=== PATIENT | male | born 1950 | race Caucasian/White ===

== ENCOUNTER → 2016-09-21 | Outpatient (CLI) | payer MEDICARE ==
--- NOTE | 2016-09-26 10:27 | SLEEPCENT ---
DATE OF PROCEDURE: 09/21/2016 ORDERED BY: Ana Luisa Paredes Nocturnal polysomnography was performed for evaluation of sleep apnea syndrome symptoms in this patient with a history of excessive somnolence and comorbidities of hypertension and diabetes type 2. 7 hours and 22 minutes of data were reviewed. There were 194 minutes of sleep identified. Sleep latency was prolonged at 85 minutes. Rapid eye movement (REM) latency was prolonged at 282 minutes. Sleep architecture showed poor progression and prolonged periods of wake. Overall sleep efficiency suffered and was only 44.4%. The patient's electrocardiogram (EKG) showed a sinus rhythm with an average heart rate of 58 beats per minute. Heart rate variability was seen surrounding respiratory events and ranged 40 to 88 beats per minute. Electroencephalogram (EEG) showed reasonably normal waveforms for awake and sleep. There were 76 respiratory events identified of 10 seconds in duration or greater for an apnea-hypopnea index of 23.5. The events were primarily obstructive, not exclusive to sleep stage nor body posture. Arousals from respiratory events occurred 5.3 times per hour and oxygen desaturations were seen into the mid 80s. Oxygen was added during the study. Respiratory events persisted. Some limb activity was noted, but arousals occurred only 4.9 times per hour. IMPRESSION: Moderate to severe obstructive sleep apnea syndrome (G47.33), apnea-hypopnea index 23.5. RECOMMENDATION: The patient should be referred back to the sleep disorder center for pressure therapy. In the interim, alcohol and sedative avoidance should be practiced and caution exercised during the operation of motor vehicles.
== END ==
LOC: M SLEEP 19:45
PROVIDERS: ATTEND Nurse Practitioner Adult Health
DX: G47.30 Sleep apnea, unspecified (principal)

== ENCOUNTER → 2016-10-02 | Outpatient (REF) | payer MEDICARE | LOC: M LAB REF 16:17 | PROVIDERS: ATTEND Internal Medicine | DX: R74.8 Abnormal levels of other serum enzymes (principal) ==

== ENCOUNTER → 2016-10-31 | Outpatient (CLI) | payer MEDICARE | LOC: M SLEEP 19:35 | PROVIDERS: ATTEND Nurse Practitioner Adult Health | DX: G47.33 Obstructive sleep apnea (adult) (pediatric) (principal) ==

== ENCOUNTER → 2016-11-17 | Outpatient (CLI) | payer MEDICARE ==
[2016-11-17 19:35] LABS: ALBUMIN 3.9 GM/DL (3.2-5.2); ALBUMIN/GLOBULIN RATIO 1.18 (1.00-1.93); ALKALINE PHOSPHATASE 169 U/L (45-117); ALT/SGPT 57 U/L (12-78); ANION GAP 13 MEQ/L (8-16); AST/SGOT 53 U/L (15-37); BILIRUBIN,TOTAL 1.7 MG/DL (0.2-1.0); BLOOD UREA NITROGEN 24 MG/DL (7-18); CARBON DIOXIDE LEVEL 28 MEQ/L (21-32); CHLORIDE LEVEL 103 MEQ/L (98-107); CREATININE FOR GFR 1.15 MG/DL (0.70-1.30); GLOMERULAR FILTRATION RATE > 60.0 (>49); GLUCOSE, FASTING 118 MG/DL (80-110); POTASSIUM SERUM 4.2 MEQ/L (3.5-5.1); SODIUM LEVEL 144 MEQ/L (136-145); TOTAL PROTEIN 7.2 GM/DL (6.4-8.2)
== END ==
LOC: M WUC 10:56
PROVIDERS: ATTEND Internal Medicine Cardiovascular Disease
DX: I11.9 Hypertensive heart disease without heart failure (principal)

== ENCOUNTER 2018-08-10 06:44 | Day surgery (SDC) | payer MEDICARE ==
[2018-08-10] MEDS ORDERED: PROPOFOL 200 MG/20 ML VIAL As Ordered (06:59)
[2018-08-10] MEDS: NS 1,000 ML IV (07:09)
[2018-08-10] MEDS ORDERED: SIMETHICONE 40MG/0.6ML DROPS 30ML As Ordered (07:18)
== END 2018-08-10 08:39 | disposition home or self-care (01) ==
LOC: M OPP 08:39
DX: Z12.11 Encounter for screening for malignant neoplasm of colon (principal); K63.5 Polyp of colon; I10 Essential (primary) hypertension; E78.5 Hyperlipidemia, unspecified; E11.9 Type 2 diabetes mellitus without complications; Z79.82 Long term (current) use of aspirin; Z79.899 Other long term (current) drug therapy; Z79.84 Long term (current) use of oral hypoglycemic drugs
CPT/HCPCS: 45385

== ENCOUNTER → 2020-07-19 | Outpatient (REF) | payer MEDICARE ==
[~2020-07-19] MED LIST: ALLO100T PO; AMLO1TAB25 PO; ASPI81TA26 PO; ATOR80TA59 PO; CHLO125TA PO; IRBE300T7 PO; MAGN400C PO; METF-729 PO; MULT1TAB10 PO; SPIR-10 PO
== END ==
LOC: M LAB REF 12:27
PROVIDERS: ATTEND Internal Medicine
DX: K76.0 Fatty (change of) liver, not elsewhere classified (principal)

== ENCOUNTER → 2020-07-25 | Outpatient (CLI) | payer MEDICARE ==
--- NOTE | 2020-07-25 13:08 | REP ---
INDICATION: ELEVATED LFT'S. COMPARISON: 04/02/2018. TECHNIQUE: Real-time sonographic evaluation of right upper quadrant performed. Study is limited due to body habitus. FINDINGS: Patient has had a prior cholecystectomy.. There is no intrahepatic or extrahepatic biliary dilatation, common bile duct measures 6 mm in maximum diameter. There is diffuse increased echotexture of the liver with a heterogeneous pattern. A hyperechoic nodule is seen in the right lobe of the liver measuring 2.7 cm in diameter consistent with previously identified hemangioma. The main portal vein is mildly dilated 14 mm suggesting some degree of portal hypertension. The pancreas is not seen due to overlying bowel gas. The right kidney demonstrates no hydronephrosis, with a normal size of 14.4 cm in length. A hypoechoic nodule is seen in the upper right kidney 3.6 x 3.0 x 4.2 cm, increased in size since the prior study of 04/02/2018. There may be an ill-defined hypoechoic nodule also in the lower pole of the right kidney measuring 2.3 x 2.2 x 2.9 cm.No free fluid is seen. IMPRESSION: Status post cholecystectomy. No biliary dilatation. Diffuse increased echotexture of the liver compatible with diffuse fibrofatty infiltration. Stable right lobe hemangioma in the liver. Slight dilatation of the main portal vein suggests portal hypertension. Two hypoechoic nodules in the right kidney as discussed above could represent complex cysts or solid nodules. Recommend further evaluation with dedicated MRI or CT of the kidneys with and without contrast. <Electronically signed by Bhaskar Beltran > 07/25/20 1548
== END ==
LOC: M RAD 06:43
PROVIDERS: ATTEND Internal Medicine
DX: K76.0 Fatty (change of) liver, not elsewhere classified (principal); K76.89 Other specified diseases of liver; R94.5 Abnormal results of liver function studies; Z90.49 Acquired absence of other specified parts of digestive tract

== ENCOUNTER → 2020-09-04 | Outpatient (CLI) | payer MEDICARE ==
[~2020-09-04] MED LIST changes: +ISOVUE-370 76% 100ML VIAL As Ordered ONE
--- NOTE | 2020-09-04 14:10 | REP ---
INDICATION: RENAL MASS. COMPARISON: 02/08/2013 TECHNIQUE: Axial precontrast, contrast-enhanced and delayed images of the abdomen using 100 cc Isovue 370 intravenous contrast material. Coronal and sagittal reformations obtained. This CT examination was performed using the following dose reduction techniques: Automated exposure control, adjustment of mA and/or kv according to the patient's size, and the use of iterative reconstruction technique. FINDINGS: Right kidney demonstrates multiple rounded lesions which remain stable in density through the examination and are consistent with complex cysts. Left kidney demonstrates anterior upper pole rounded lesion which remains stable in density and consistent with complex cyst while a somewhat irregular shaped lower pole lesion measuring 3.2 cm appears to be increased in size compared to 2013 and demonstrates slight enhancement concerning for possible mass. Liver demonstrates nodular contour consistent with cirrhosis and includes 2.2 cm lesion in the medial right lobe consistent with previously diagnosed hemangioma. Patent umbilical vein and gastric varices consistent with associated portal hypertension. Mild splenomegaly without focal splenic lesion noted. Pancreas and bilateral adrenal glands are normal. Evidence for prior cholecystectomy. The visualized enteric system is without obstruction or acute inflammatory process. No ascites. No free air. No obvious adenopathy. Abdominal aorta without aneurysm. Musculoskeletal structures are intact. Lung bases are clear. IMPRESSION: 1. Majority of bilateral renal lesions appear to represent complex proteinaceous cysts. However, there is a somewhat suspicious 3.2 cm lesion along the posterior aspect of the left kidney which may represent mass. Ultrasound evaluation or pre and postcontrast MRI of the abdomen is recommended for further investigation. 2. Evidence for cirrhosis and portal hypertension as described above. <Electronically signed by Carlso Alberto Moore > 09/04/20 [id number]
== END ==
LOC: M RAD 12:52
PROVIDERS: ATTEND Urology
DX: N28.89 Other specified disorders of kidney and ureter (principal)
CPT/HCPCS: 74170; Q9967

== ENCOUNTER → 2020-09-13 | Outpatient (CLI) | payer MEDICARE ==
[~2020-09-13] MED LIST changes: -ISOVUE-370 76% 100ML VIAL As Ordered ONE
--- NOTE | 2020-09-13 11:16 | REP ---
INDICATION: RENAL MASS COMPARISON: CT dated 09/04/2020 TECHNIQUE: Real time zabala scale ultrasound examination using curved array transducer. FINDINGS: The right kidney measures 14.1 x 5.0 x 5.2 cm and includes 3.7 x 3.1 x 3.1 cm upper pole simple cyst, 1.8 x 1.2 x 1.5 cm mid/lower pole simple cyst and 2.8 x 2.6 x 2.5 cm lower pole simple cyst which corresponds to findings on CT. (The smaller lesions on recent CT or confirmed to be cystic and without enhancement.) There is no evidence for hydronephrosis or nephrolithiasis. The left kidney measures 13.2 x 6.1 x 5.4 cm and includes 2.4 x 2.4 x 3.1 cm upper pole simple cyst and 1.0 x 0.9 x 1.2 cm midpole simple cyst. The somewhat irregular triangular shaped soft tissue density lesion at the lower pole of the left kidney on CT is not definable by ultrasound and cannot be confirmed as simple benign lesion. IMPRESSION: The questionable right lower pole proteinaceous cyst versus mass on CT likely represents cyst based on current ultrasound. However, the questionable suspicious area in the lower pole of the left kidney is not identifiable on current ultrasound. As such, pre and postcontrast MRI of the kidneys may be warranted to confirm benign finding. <Electronically signed by Carlos Alberto Moore > 09/13/20 1112
== END ==
LOC: M RAD 09:42
PROVIDERS: ATTEND Urology
DX: N28.89 Other specified disorders of kidney and ureter (principal)

== ENCOUNTER → 2020-09-17 | Outpatient (CLI) | payer MEDICARE ==
[2020-09-17 15:19] LABS: HEMATOCRIT 41.5 % (42.0-52.0); HEMOGLOBIN 12.9 g/dl (13.5-17.5); MEAN CORPUSCULAR HEMOGLOBIN 29.3 pg (27.0-33.0); MEAN CORPUSCULAR HGB CONC 31.1 g/dl (32.0-36.5); MEAN CORPUSCULAR VOLUME 94.1 fl (80.0-96.0); PLATELET COUNT, AUTOMATED 149 10^3/uL (150-450); RED BLOOD COUNT 4.41 10^6/uL (4.30-6.10); WHITE BLOOD COUNT 4.9 10^3/uL (4.0-10.0)
[2020-09-17 15:30] LABS: INR 1.07; PROTHROMBIN TIME 14.2 SECONDS (12.5-14.3)
[2020-09-17 15:31] LABS: PARTIAL THROMBOPLASTIN TIME 34.5 SECONDS (24.2-38.5)
[2020-09-17 15:38] LABS: CALCIUM LEVEL 9.3 MG/DL (8.8-10.2); CREATININE FOR GFR 1.52 MG/DL (0.70-1.30); GLOMERULAR FILTRATION RATE 48.2 (>42); POTASSIUM SERUM 4.1 MEQ/L (3.5-5.1)
== END ==
LOC: M WUC 11:27
PROVIDERS: ATTEND Urology
DX: N28.89 Other specified disorders of kidney and ureter (principal)
CPT/HCPCS: 36415; 80048; 85027; 85610; 85730; G0463

== ENCOUNTER → 2020-09-26 | Outpatient (CLI) | payer MEDICARE ==
[~2020-09-26] MED LIST changes: +LIDOCAINE 1% MDV 20ML VIAL As Ordered ONE
[2020-09-26 15:30] VITALS: BP 158/66
--- NOTE | 2020-09-26 18:05 | REP ---
INDICATION: BILATERAL KIDNEY MASS. COMPARISON: None. TECHNIQUE: The procedure was performed under the direct supervision of Dr. Beltran. The patient has a history of a 3.4 cm lesion in the right lower pole kidney, as well as a 3.2 cm lesion along the posterior aspect of the left kidney seen on a previous CT scan dated 09/04/2020. The risks and benefits of the procedure were explained to the patient and informed consent was obtained. The left kidney was addressed 1st. The patient was placed on the CT table in a supine position. The left renal mass was localized using CT guidance. The skin was prepped and draped in a sterile fashion. 1% lidocaine was used as a local anesthetic. Using CT guidance a 19/20 gauge coaxial needle biopsy system was inserted and advanced into the mass. Five core biopsy samples were obtained. The right kidney was then addressed. The patient was rolled up onto his left side. The left renal mass was localized using CT guidance. The skin was prepped and draped in a sterile fashion. 1% lidocaine was used as a local anesthetic. Using CT guidance a 19/20 gauge coaxial needle biopsy system was inserted and advanced into the mass. Five core biopsy samples were obtained and sent to lab. The patient tolerated the procedure well and there were no immediate complications. After the appropriate amount to monitor convalescence the patient was discharged from the department. FINDINGS: None IMPRESSION: CT-guided bilateral renal mass biopsy. <Electronically signed by Liban Mosqueda > 09/26/20 8002 <Electronically signed by Bhaskar Beltran > 09/26/20 [id number]
== END ==
LOC: M IRPRO 11:28
PROVIDERS: ATTEND Urology
DX: C64.1 Malignant neoplasm of right kidney, except renal pelvis (principal); C64.2 Malignant neoplasm of left kidney, except renal pelvis

== ENCOUNTER → 2020-10-11 | Outpatient (CLI) | payer MEDICARE ==
[~2020-10-11] MED LIST changes: -LIDOCAINE 1% MDV 20ML VIAL As Ordered ONE
--- NOTE | 2020-10-11 10:36 | REP ---
INDICATION: MALIGNANT NEOPLASM OF RIGHT KIDNEY, EXCEPT SHAMAR/LABS. COMPARISON: Comparison study May 20, 2016. TECHNIQUE: Two views.. FINDINGS: The lungs are well inflated and free of infiltrate. The pleural angles are sharp. The heart size is normal. Pulmonary vasculature is not increased. No significant bony abnormality is seen. There are degenerative changes in the thoracic spine. Minimal linear fibrosis is again noted in the left base. Aorta is slightly tortuous. IMPRESSION: No active disease.. <Electronically signed by Papa Mena > 10/11/20 [id number]
[2020-10-11 11:08] LABS: HEMOGLOBIN 13.4 g/dl (13.5-17.5); MEAN CORPUSCULAR HEMOGLOBIN 30.1 pg (27.0-33.0); MEAN CORPUSCULAR HGB CONC 31.9 g/dl (32.0-36.5); MEAN CORPUSCULAR VOLUME 94.4 fl (80.0-96.0); PLATELET COUNT, AUTOMATED 170 10^3/uL (150-450); RED BLOOD COUNT 4.45 10^6/uL (4.30-6.10); WHITE BLOOD COUNT 6.7 10^3/uL (4.0-10.0)
[2020-10-11 11:50] LABS: ALBUMIN 3.9 GM/DL (3.2-5.2); BILIRUBIN,TOTAL 2.4 MG/DL (0.2-1.0); CALCIUM LEVEL 9.6 MG/DL (8.8-10.2); CREATININE FOR GFR 1.89 MG/DL (0.70-1.30); GLOMERULAR FILTRATION RATE 37.5 (>42); POTASSIUM SERUM 4.3 MEQ/L (3.5-5.1); TOTAL PROTEIN 6.9 GM/DL (6.4-8.2)
--- NOTE | 2020-10-12 12:08 | ECGEPIP ---
[facility] Test Date: 2020-10-11 Pat Name: JOYA DEGROOT Department: Room: - Gender: Male Parts Sales Associate: SUKH : 1950 Requested By: ADALGISA Trevino Order Number: [id number] Reading MD: Dillon Espitia Measurements Intervals [place] Rate: 82 P: 45 KS: 152 QRS: 6 QRSD: 94 T: 55 QT: 398 QTc: 464 Interpretive Statements Sinus rhythm with frequent premature Uniform ventricular complexes Nonspecific ST and T wave abnormality Electronically Signed on 10-12-2020 12:08:00 EST by Dillon Espitia
== END ==
LOC: M LAB 09:58
PROVIDERS: ATTEND Urology
DX: Z01.818 Encounter for other preprocedural examination (principal); R94.31 Abnormal electrocardiogram [ECG] [EKG]; C64.1 Malignant neoplasm of right kidney, except renal pelvis; C64.2 Malignant neoplasm of left kidney, except renal pelvis

== ENCOUNTER → 2020-10-26 | Outpatient (CLI) | payer MEDICARE ==
[~2020-10-26] MED LIST changes: +VITMTA PO
== END ==
LOC: M LABSMTC 10:40
PROVIDERS: ATTEND Anesthesiology
DX: Z01.812 Encounter for preprocedural laboratory examination (principal); Z20.822 Contact with and (suspected) exposure to COVID-19

== ENCOUNTER 2020-10-31 06:04 | Inpatient (IN) | payer MEDICARE ==
[~2020-10-31] VITALS: Ht 180.3 cm; Wt 150.6 kg
--- OUTSIDE RECORDS SUMMARY | 2020-10-31 06:10 | CCD ---
Author Author [facility] Organization [facility] ems Address Unknown Phone Unavailable Care Team Providers Care Industrial Recruiter Name Role Phone Zackary Robledo Unavailable PROBLEMS Type Condition ICD9-CM Code [id number] Code Onset Dates Condition S tatus SNOMED Code Notes Problem Renal mass N28.89 Active 217179934 ALLERGIES No Known Allergies ENCOUNTERS from 1950 to 2020-09-13 Encounter Location Date Provider Diagnosis [facility] U[facility] [address] [place] [address] Sep Zackaryjamie Peralesler Renal mass N28.89 IMMUNIZATIONS No Information SOCIAL HISTORY Sex Assigned At : Social History Observation Description Sex Assigned At Unknown REASON FOR REFERRAL No Information VITAL SIGNS Weight 339.6 lbs Sep, Height 5'11'' in Sep, BMI 47.36 kg/m2 Sep, Heart Rate 95 /min Sep, Respiratory Rate 18 /min Sep, Temperature 97.7 degrees Fahrenheit Sep, Oximetry 96% Sep, Blood pressure systolic 144 mm Hg Sep, Blood pressure diastolic 74 mm Hg Sep, MEDICATIONS Medication SIG (Take, Route, Frequency, Duration) Notes Start Da te End Date Status Crestor 10 MG 1 tablet Orally Once a day for 30 day(s) Not-Taking Aspirin 81 MG 1 tablet Orally Once a day for 30 day(s) Active AmLODIPine Besylate 5 MG 1 tablet Orally Once a day Active Allopurinol 100 MG 1 tablet Orally twice a day for 30 day(s) Active Chlorthalidone 25 MG 0.5 tablet in the morning with food Orally Onc e a day Active Irbesartan 300 MG 1 tablet Orally Once a day for 30 day(s) Active Magnesium Oxide 500 MG as directed Orally TWICE DAILY Active Mens One Daily Active Furosemide 20 MG 1 tablet Orally Once a day for 30 day(s) Not-Taking Losartan Potassium 100 MG 1 tablet Orally Once a day for 30 day(s) Not-Taking MetFORMIN HCl ER 500 MG 1 tablet with evening meal Orally FOUR TIME S A DAY Active PROCEDURES No Information RESULTS No Results REASON FOR VISIT kidney lesions MEDICAL (GENERAL) HISTORY Type Description Date Medical History Hypertension Medical History Gout Medical History Abdominal Aortic Aneurysm Medical History Obstructive Sleep Apnea Medical History Diabetes Medical History Fibroid Tumors Surgical History appendectomy Surgical History cholecystectomy Surgical History removal of several fibroid tumor Goals Section No Information Health Concerns No Information MEDICAL EQUIPMENT No Information MENTAL STATUS No Information FUNCTIONAL STATUS No Information ASSESSMENTS Encounter Date Diagnosis Assessment Notes Treatment Notes Treatm ent Clinical Notes Sep, Renal mass (ICD-10 - N28.89) - CT results discussed - renal US ordered to better characterize the 2 lesions that demonstrate slight enhancement - patient will f/u shortly after the US to discuss the results PLAN OF TREATMENT Treatment Notes Assessment Notes Clinical Notes Renal mass - CT results discuss ed- renal US ordered to better characterize the 2 lesions that demonstrate slight enhancement- patient will f/u shortly after the US to discuss the results Treatment Notes Test Name Order Date [facility] RENAL US 2020-09-13 Next Appt Details 1-2 wk follow up w/ renal US prior Reaso n:renal masses Provider Name:Zackary Robledo, 08:00:00 AM, [address], [place], [address], Follow Up:1-2 wk follow up w/ renal US priorrenal masses Insurance Providers Payer Name Payer Address Payer Phone Insured Name Patient Relati onship to Insured Coverage Start Date Coverage End Date MEDICARE BLUE PPO [address] [facility] [id number] JOYA DEGROOT self
--- OUTSIDE RECORDS SUMMARY | 2020-10-31 06:10 | CCD ---
Author Author [facility] Organization [facility] ems Address Unknown Phone Unavailable Care Team Providers Care University Administrative Assistant Name Role Phone Zackary Robledo Unavailable PROBLEMS Type Condition ICD9-CM Code [id number] Code Onset Dates Condition S tatus SNOMED Code Notes Problem Renal mass N28.89 Active [id number] ALLERGIES No Known Allergies ENCOUNTERS from 1950 to 2020-09-19 Encounter Location Date Provider Diagnosis [facility] [address] [place] [address] Sep Zackary Peralesler Renal mass N28.89 IMMUNIZATIONS No Information SOCIAL HISTORY Sex Assigned At : Social History Observation Description Sex Assigned At Unknown REASON FOR REFERRAL No Information VITAL SIGNS Weight 338.7 lbs Sep, Height 5'11'' in Sep, BMI 47.23 kg/m2 Sep, Heart Rate 85 /min Sep, Respiratory Rate 18 /min Sep, Temperature 97.5 degrees Fahrenheit Sep, Oximetry 97% Sep, Blood pressure systolic 146 mm Hg Sep, Blood pressure diastolic 88 mm Hg Sep, MEDICATIONS Medication SIG (Take, Route, Frequency, Duration) Notes Start Da te End Date Status Furosemide 20 MG 1 tablet Orally Once a day for 30 day(s) Not-Taking AmLODIPine Besylate 5 MG 1 tablet Orally Once a day Active Crestor 10 MG 1 tablet Orally Once a day for 30 day(s) Not-Taking Aspirin 81 MG 1 tablet Orally Once a day for 30 day(s) Active Irbesartan 300 MG 1 tablet Orally Once a day for 30 day(s) Active Magnesium Oxide 500 MG as directed Orally TWICE DAILY Active MetFORMIN HCl ER 500 MG 1 tablet with evening meal Orally FOUR TIME S A DAY Active Chlorthalidone 25 MG 0.5 tablet in the morning with food Orally Onc e a day Active Losartan Potassium 100 MG 1 tablet Orally Once a day for 30 day(s) Not-Taking Mens One Daily Active Allopurinol 100 MG 1 tablet Orally twice a day for 30 day(s) Active PROCEDURES No Information RESULTS REASON FOR VISIT f/u from renal us MEDICAL (GENERAL) HISTORY Type Description Date Medical [...] Sep, Renal mass (ICD-10 - N28.89) - renal US results discussed - recommend left renal mass biopsy of lower pole lesion - f/u after biopsy to discuss pathology results ADDENDUM: Subsequent to the patient's visit, I discussed the patient's imaging w/ Dr. Beltran in radiology. He agrees that while the lesion on the right appears cystic on US, it demonstrates slight enhancement on CT and MRI. Given the US results are user dependent, we agreed that the safer approach is to biopsy both suspicious lesions. I therefore changed the order to biopsy the right lower pole renal lesion as well. PLAN OF TREATMENT Treatment Notes Assessment Notes Clinical Notes Renal mass - renal US results d iscussed- recommend left renal mass biopsy of lower pole lesion- f/u after biopsy to discuss pathology resultsADDENDUM:Subsequent to the patient's visit, I discussed the patient's im aging w/ Dr. Beltran in radiology. He agrees that while the lesion on the right appears cystic on US, it demonstrates slight enhancement on CT and MRI. Given the US results are user dependent, we agreed that the safer approach is to biopsy both suspicious lesions. I therefore changed the order to biopsy the right lower pole renal lesion as well. Treatment Notes Test Name Order Date CT Guided Biopsy 2020-09-19 Next Appt Details after renal biopsy Reason:left renal mas s Follow Up:after renal biopsyleft renal mass Insurance Providers Payer Name Payer Address Payer Phone Insured Name Patient Relati onship to Insured Coverage Start Date Coverage End Date MEDICARE BLUE PPO [address] [facility] [place] [id number] RECORE,JOYA BARAHONA self
--- OUTSIDE RECORDS SUMMARY | 2020-10-31 06:10 | CCD | Continuity of Care Document ---
Author Author Chase RODRIGUEZ M.D Organization Unknown Address [address] [place] [address] Phone [phone] Care Team Providers Care Levee Superintendent Name Role Phone Cheli Gunn DO AUTM [phone] Problems Active Problems Provider Date Cirrhosis of liver Jonny Rodriguez M.D. Onset: 10/09/19 21 Social History Type Date Description Comments Sex Unknown ETOH Use Denies alcohol use Tobacco Use Start: Unknown Patient has never smoked Allergies, Adverse Reactions, Alerts Description No Known Drug Allergies Medications Active Medications SIG Qnty Indications Ordering Provide r Date Amlodipine Besylate 5mg Tablets Take One Tablet By Mouth Once Daily Unknown Allopurinol 100mg Tablets Cheli Gunn DO Metformin HCL ER 500mg Tablets ER 24HR Take Two Tablets By Mouth Twice A Day Unknown Irbesartan 300mg Tablets Take One Tablet By Mouth Every Day Unknown Chlorthalidone 25mg Tablets Take 1/2 Tablet By Mouth Every Day Unknown One-A-Day Essential Tablets Unknown Aspirin Ec Low Dose 81mg Tablets DR Unknown Magnesium 400mg Tablets Unknown Immunizations Description No Information Available Vital Signs Date Vital Result Comment 10/09/2020 11:52am Height 71 inches 5'11" Weight 329.00 lb BP Systolic 137 mmHg BP Diastolic 86 mmHg Heart Rate 86 /min BMI (Body Mass Index) 45.9 kg/m2 Weight 149.234 kg Body Temperature 97.3 F Results Description No Information Available Procedures Description No Information Available Medical Devices Description No Information Available Encounters Description No Information Available Assessments Date Code Description Provider 10/09/2020 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 Plan of Treatment Future Appointment(s):* 04/11/2021 10:00 am - Jonny Rodriguez M.D. 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 Pt is overweight, and has diabetes. No c/o abdominal pain, weight loss, change in bowel habits, or rectal bleeding. No family h/o colon cancer. No h/o chest pain, or sob. Scans suggest portal hypertension.He has 2 masses in both kidneys. He will be having surgery with Dr. Robledo. No family h/o liver diseases. He denies blood transfusions, iv drug use, or alcohol abuse. Plan:1. Pt is on a diet, has lost weight.2. He will need an egd to r/o varices.3. Labs + liver scans every 6 months to r/o liver masses.4. Office in 6 months, after he is through his kidney operations. Functional Status Description No Information Available Mental Status Description No Information Available Referrals Description No Information Available
--- OUTSIDE RECORDS SUMMARY | 2020-10-31 06:10 | CCD | Continuity of Care Document ---
Author Author Chase RODRIGUEZ M.D Organization Unknown Address [address] [place] [address] Phone [phone] Care Team Providers Care Voice Data Communications Engineer Name Role Phone Cheli Gunn DO AUTM [phone] Problems Active Problems Provider Date Cirrhosis of [...] Medical Devices Description No Information Available Encounters Type Date Location Provider Dx Diagnosis Office Visit 10/09/2020 11:45a Main Office Jonny Rodriguez M.D. K 74.69 Other cirrhosis of liver Assessments Date Code Description Provider 10/09/2020 K74.69 [...]
--- OUTSIDE RECORDS SUMMARY | 2020-10-31 06:10 | CCD ---
Author Author [facility] Organization [facility] Address Unknown Phone Unavailable Care Team Providers Care Health Services Information Specialist Name Role Phone Venkat Zackary Unavailable PROBLEMS Type Condition ICD9-CM Code [id number] Code Onset Dates Condition S tatus SNOMED Code Notes Problem Renal mass N28.89 Active [id number] ALLERGIES No Known Allergies ENCOUNTERS from 1950 to 2020-09-20 Encounter Location Date Provider Diagnosis [facility] Urology [address] [place] [address] Sep Zackary Robledo IMMUNIZATIONS No Information SOCIAL HISTORY Sex Assigned At : Social History Observation Description Sex Assigned At Unknown REASON FOR REFERRAL No Information VITAL SIGNS No information MEDICATIONS Medication SIG (Take, Route, Frequency, Duration) [...] 30 day(s) Active PROCEDURES No Information RESULTS No Results REASON FOR VISIT Change in Biopsy Order MEDICAL (GENERAL) HISTORY Type Description Date Medical History Hypertension Medical History Gout Medical History Abdominal Aortic Aneurysm Medical History Obstructive Sleep Apnea Medical History Diabetes Medical History Fibroid Tumors Surgical History appendectomy Surgical History cholecystectomy Surgical History removal of several fibroid tumor Goals Section No Information Health Concerns No Information MEDICAL EQUIPMENT No Information MENTAL STATUS No Information FUNCTIONAL STATUS No Information ASSESSMENTS No Information PLAN OF TREATMENT No Information Insurance Providers Payer Name Payer Address Payer Phone Insured Name Patient Relati onship to Insured Coverage Start Date Coverage End Date MEDICARE BLUE PPO [address] [place] [id number] JOYA DEGROOT self
--- OUTSIDE RECORDS SUMMARY | 2020-10-31 06:10 | CCD ---
Author Author [facility] [employer] [employer] ems Organization [facility] [employer] ems Address Unknown Phone Unavailable Care Team Providers Care Specialty Molder Name Role Phone Venkat Zackary Unavailable PROBLEMS Type Condition ICD9-CM Code YSQ28-EX Code Onset Dates Condition S tatus SNOMED Code Notes Problem Renal mass N28.89 Active [id number] ALLERGIES No Known Allergies ENCOUNTERS from 1950 to 2020-09-25 Encounter Location Date Provider Diagnosis [facility] Urology [address] [place] [address] Sep Zackary Robledo IMMUNIZATIONS No Information SOCIAL [...] Information RESULTS No Results REASON FOR VISIT CT Guided Biopsy MEDICAL (GENERAL) HISTORY Type Description Date Medical [...] Coverage End Date MEDICARE BLUE PPO [address] [place] [id number] JOYA DEGROOT self
--- OUTSIDE RECORDS SUMMARY | 2020-10-31 06:10 | CCD ---
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 Acti ve [id number] ALLERGIES No Known Allergies ENCOUNTERS from 1950 to 2020-10-04 Encounter Location Date Provider Diagnosis [facility] [id number] [place] [address] Sep Zackary Robledo Renal cell carcinoma of right kidney C64 .1 ; Renal cell carcinoma of left kidney C64.2 and Preop testing Z01.818 IMMUNIZATIONS No Information SOCIAL HISTORY Sex Assigned At : Social History Observation Description Sex Assigned At Unknown REASON FOR REFERRAL No Information VITAL SIGNS Weight 339.7 lbs Sep, Height 5'11'' in Sep, BMI 47.37 kg/m2 Sep, Heart Rate 88 /min Sep, Respiratory Rate 18 /min Sep, Temperature 97.2 degrees Fahrenheit Sep, Oximetry 97% Sep, Blood pressure systolic 164 mm Hg Sep, Blood pressure diastolic 88 mm Hg Sep, MEDICATIONS Medication SIG (Take, Route, Frequency, Duration) Notes Start Da te End Date Status AmLODIPine Besylate 5 MG 1 tablet Orally Once a day Active Magnesium Oxide 500 MG as directed Orally TWICE DAILY Active Irbesartan 300 MG 1 tablet Orally Once a day for 30 day(s) Active Chlorthalidone 25 MG 0.5 tablet in the morning with food Orally Onc e a day Active Mens One Daily Active Losartan Potassium 100 MG 1 tablet Orally Once a day for 30 day(s) Not-Taking Furosemide 20 MG 1 tablet Orally Once a day for 30 day(s) Not-Taking MetFORMIN HCl ER 500 MG 1 tablet with evening meal Orally FOUR TIME S A DAY Active Aspirin 81 MG 1 tablet Orally Once a day for 30 day(s) Active Allopurinol 100 MG 1 tablet Orally twice a day for 30 day(s) Active Crestor 10 MG 1 tablet Orally Once a day for 30 day(s) Not-Taking PROCEDURES No Information RESULTS No Results REASON FOR VISIT No Information MEDICAL (GENERAL) HISTORY Type Description Date Medical [...] Notes Treatm ent Clinical Notes Sep, Renal cell carcinoma of right kidney (ICD-10 - C 64.1) - pathology results discussed - informed consent signed for right robotic partial nephrectomy - will need preop CBC, CMP, CXR, EKG - will need medical clearance Sep, Renal cell carcinoma of left kidney (ICD-10 - C6 4.2) Sep, Preop testing (ICD-10 - Z01.818) Sep, Other Nephrectomy material was edson nted PLAN OF TREATMENT Treatment Notes Assessment Notes Clinical Notes Renal cell carcinoma of right kidney - p athology results discussed- informed consent signed for right robotic partial nephrectomy- will need preop CBC, CMP, CXR, EKG- will need medical clearance Treatment Notes Test Name Order Date CBC - Complete Blood Count 2020-10-04 Comprehensive Metabolic Profile (CMP) 2020-10-04 Electrocardiogram (EKG) 2020-10-04 [facility] Chest, 2 view (PA\Lat) 2020-10-04 Next Appt Details surgery Reason: Insurance Providers Payer Name Payer Address Payer Phone Insured Name Patient Relati onship to Insured Coverage Start Date Coverage End Date MEDICARE BLUE PPO [address] [employer] [address] [place] [address] RECORE,JOYA BARAHONA self
--- OUTSIDE RECORDS SUMMARY | 2020-10-31 06:10 | CCD | Continuity of Care Document ---
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 Social History Type Date Description Comments Sex Unknown ETOH Use Rarely consumes alcohol Tobacco Use Start: Unknown Patient has never smoked Allergies, Adverse Reactions, Alerts Description No Known Drug Allergies Medications Active Medications SIG Qnty Indications Ordering Provide r Date Amlodipine Besylate 5mg Tablets Take One Tablet By Mouth Every Day 30tabs Cheli Leggett DO 2019 Chlorthalidone 25mg Tablets 1/2 by mouth every day 30tabs Cheli Leggett DO 07/20/2020 Acetaminophen ER 650mg Tablets ER 1 by mouth every 8 hours as needed for pain 90tabs Cheli jacobsenDO 07/07/2019 Prevnar 13 Suspension 0.5 cubic centimeters x 1 1units Cheli Leggett DO 09/29/2018 Irbesartan 300mg Tablets Take One Tablet By Mouth Every Day 90tabs Cheli Leggett DO 04/01/2018 Magnesium Oxide 400(241.3mg) mg Ta blets take one tablet by mouth twice a day 180tabs Cheli Leggett DO 2016 Metformin HCL ER 500mg Tablets ER 24HR Take Two Tablets By Mouth Twice A Day 360tabs Cheli goins,DO 01/24/2016 Allopurinol 100mg Tablets Take Two Tablets By Mouth Every Day 180tabs Cheli Leggett,DO 02/25/2011 Aspirin 81mg Tablets 1 po qd Cheli LeggettDO 07/12/2010 Atorvastatin Calcium 80mg Tablets 1 by mouth every day Jose Roberto Nicole MD Oxygen 2Liters Misc vi a nasal canula qhs Jose Roberto Nicole MD Medications Administered in Office Medication SIG Qnty Indications Ordering Provider Date Administration Of Flu Vaccine Inj ection Cheli Leggett DO 07/20/2020 Immunizations CPT Code Status Date Vaccine Lot # [id number] Given 07/20/2020 Influenza Vaccin e Quadrivalent Preser/Antibiotic Free Im Use [id number] U-PneuC Given 09/30/2018 Prevnar 13 28144 Given 06/15/2017 Pneumovax 23 [id number] U-Td Refused 07/20/2020 Td(Adult)(Tetanus, Diphtheri a) unspecified 82677 Refused 07/20/2020 Shingrix Zoster Vaccine (HZV), Recombinant, Subunit, Adjuvanted 30563 Refused 09/29/2018 Influenza Virus Vaccine, Quadrivalent (Cciiv4), Derived From Cell 40681 Refused 09/29/2018 Shingrix Zoster Vaccine (HZV), Recombinant, Subunit, Adjuvanted 32086 Refused 09/29/2018 Zoster Vaccine 56382 Refused 09/29/2018 Adacel- Tetanus Diphtheria P ertussis (Age64 & Under) 58289 Refused 09/29/2018 Prevnar 13 19438 Refused 06/15/2017 Influenza Vaccin e Quadrivalent Preser/Antibiotic Free Im Use [id number] Vital Signs Date Vital Result Comment 10/18/2020 9:54am BP Systolic 140 mmHg BP Diastolic 78 mmHg Heart Rate 108 /min Height 70 inches 5'10" Weight 330.00 lb O2 % BldC Oximetry 96 % RM Air BMI (Body Mass Index) 47.3 kg/m2 07/20/2020 8:36am BP Systolic 132 mmHg BP Diastolic 62 mmHg Heart Rate 94 /min Height 70 inches 5'10" Weight 337.38 lb O2 % BldC Oximetry 97 % RM Air BMI (Body Mass Index) 48.4 kg/m2 Results Test Acquired Date Facility Test Result H/L Range Note Complete Blood Count 10/11/2020 [facility] [address] [place] [address] [phone] White Blood Count 6.7 10 Normal 4.0-10.0 Red Blood Count 4.45 10 Normal 4.30-6.10 Hemoglobin 13.4 g/dL Low 13.5-17.5 Hematocrit 42.0 % Normal 42.0-52.0 Mean Corpuscular Volume 94.4 fl Normal 80.0-96.0 Mean Corpuscular Hemoglobin 30.1 pg Normal 27.0-33.0 Mean Corpuscular HGB Conc 31.9 g/dL Low 32.0-36.5 Red Cell Distribution Width 15.0 % High 11.5-14.5 Platelet Count, Automated 170 10 Normal 150-450 Nucleated Red Blood Cell % 0.0 % Normal 0-0 Comprehensive Metabolic Profil 10/11/2020 [facility] [address] [place] [address] [phone] Glucose, Fasting 121 mg/dL High 70-100 Blood Urea Nitrogen 34 mg/dL High 7-18 Creatinine For GFR 1.89 mg/dL High 0.70-1.30 Glomerular Filtration Rate 37.5 Low >42 1 Sodium Level 142 mEq/L Normal 136-145 Potassium Serum 4.3 mEq/L Normal 3.5-5.1 Chloride Level 107 mEq/L Normal 98-107 Carbon Dioxide Level 27 mEq/L Normal 21-32 Anion Gap 8 mEq/L Normal 8-16 Calcium Level 9.6 mg/dL Normal 8.8-10.2 Ast/Sgot 30 U/L Normal 7-37 Alt/SGPT 46 U/L Normal 12-78 Alkaline Phosphatase 144 U/L High 45-117 Bilirubin,Total 2.4 mg/dL High 0.2-1.0 Total Protein 6.9 GM/DL Normal 6.4-8.2 Albumin 3.9 GM/DL Normal 3.2-5.2 Albumin/Globulin Ratio 1.3 Normal Complete Blood Count 07/19/2020 [facility] Irrigation Supervisor: [place] [address] [phone] WBC 5.1 x10*3/UL 4.1 - 10.9 RBC 4.44 x10*6/UL 4.20 - 6.30 Hemoglobin 13.5 g/dL 12.0 - 18.0 Hematocrit 40.0 % 37.0 - 51.0 MCV 90.1 fL 80.0 - 97.0 MCH 30.3 pg 26.0 - 32.0 MCHC 33.7 g/dL 31.0 - 38.0 RDW 14.5 % High 11.6 - 13.7 PLT 175 x10*3/UL 140 - 440 MPV 8.0 FL 7.8 - 11.0 Lymph % 35.6 % 10.0 - 58.5 Mid % 7.2 % 1.7 - 9.3 Neut % 57.2 % 37.0 - 92.0 Lymph # 1.8 x10*3/UL 0.6 - 4.1 Mid # 0.4 x10*3/UL 0.1 - 0.6 Neut # 2.9 x10*3/UL 2.0 - 7.8 A1c 07/19/2020 [facility] , Irrigation Supervisor: [place] [address] [phone] Hba1c 6.2 % High <5.7 2 Est Avg Glucose 131 mg/dL High 60 - 110 Comprehensive Chem Profile 07/19/2020 [facility], Irrigation Supervisor: [place] [address] [phone] Glucose 113 mg/dL High 74 - 99 3 BUN 22 mg/dL High 7 - 18 Creatinine 1.3 mg/dL 0.6 - 1.3 Sodium 143 mEq/L 136 - 145 Potassium 4.4 mEq/L 3.5 - 5.1 Chloride 106 mEq/L 98 - 107 Carbon Dioxide 27 mEq/L 21 - 32 Calcium 9.3 mg/dL 8.5 - 10.1 Alk. Phosphatase 147 mg/dL High 46 - 116 Total Bilirubin 2.0 mg/dL High 0.2 - 1.0 Ast (Sgot) 32 U/L 15 - 37 Alt (SGPT) 44 U/L 12 - 78 Albumin 3.8 g/dL 3.4 - 5.0 Total Protein 7.1 g/dL 6.4 - 8.2 A/G Ratio 1.15 CALC 1.00 - 1.90 GFR 54 mL/min Low >60 GFR >= 60 mL/min >60 4 Lipid Profile 07/19/2020 [facility] Irrigation Supervisor: [place] [address] [phone] Cholesterol 209 mg/dL High 131 - 200 Triglycerides 151 mg/dL High 30 - 150 HDL Cholesterol 47 mg/dL 35 - 60 LDL (Calculated) 132 CALC 50 - 159 Microalbumin/Creatinine Urine 07/19/2020 [facility], Irrigation Supervisor: [place] [address] [phone] Microalbumin Urine 21.5 mg/L High 1.3 - 20.0 Urine Creatinine 105.9 mg/dL 30.0 - 125.0 Microalb/Creat Ratio 20.3 ug/mg 0.0 - 30.0 Laboratory test finding 07/19/2020 [facility] [address] [place], [place] [id number] [phone] Alpha Fetoprotein Tumor Quant 2.6 NG/ML Normal <8 .1 5 1 Units are mL/min/1.73 m2 Chronic Kidney Disease Staging per NKF: Stage I & II GFR >=60 Normal to Mildly Decreased Stage III GFR 30-59 Moderately Decreased Stage IV GFR 15-29 Severely Decreased Stage V GFR <15 Very Little GFR Left ESRD GFR <15 on POCKET SECRETARY ASSEMBLER 2 Lab Result Notes: Pre-Diabetes 5.7 - 6.4 % Diabetes = or > 6.5% 3 100-125 mg/dL PRE-DIABET ES/FASTING >126 mg/dL DIABETES/FASTING 4 CHRONIC KIDNEY DISEASE STAGI NG PER NKF STAGE I & II GFR >= 60 NORMAL TO MILDLY DECREASED STAGE III GFR 30-59 MODERATELY DECREASED STAGE IV GFR 15-29 SEVERELY DECREASED STAGE V GFR <15 VERY LITTLE GFR LEFT ESRD GFR <15 ON POCKET SECRETARY ASSEMBLER 5 THE AFP ASSAY IS PERFORMED O N THE ugichemAUR BY CHEMILUMINESCENCE AND SHOULD NOT BE COMPARED INTERCHANGEABLY WITH OTHER METHODS. IT SHOULD NOT BE USED ALONE A SCREENING TEST OR DIAGNOSIS FOR THE PRESENCE OR ABSENCE OF MALIGNANT DISEASE. THESE RESULTS ARE NOT INTERPRETABLE IN FEMALES. PREDICTIONS OF DISEASE RECURRENCE SHOULD NOT BE BASED SOLELY ON VALUES OBTAINED FROM SERIAL PATIENT SERUM VALUES. Procedures Date Code Description Status 08/10/2018 [id number] Colonoscopy Completed 09/21/2017 [id number] Diabetic Retinal Eye Exam Comple samira 10/07/2012 [id number] Colonoscopy Completed Medical Devices Description No Information Available Encounters Type Date Location Provider Dx Diagnosis Office Visit 07/20/2020 9:00a [facility] Cheli Leggett ,DO Q85.00 Neurofibromatosis, unspecified I50.812 Chronic right heart failure I12.9 Hypertensive chronic kidney disease w stg 1-4/unsp chr kdny N18.30 Chronic kidney disease, stag e 3 unspecified K76.0 Fatty (change of) liver, not elsewhere classified I87.2 Venous insufficiency (chroni c) (peripheral) E78.5 Hyperlipidemia, unspecified G47.33 Obstructive sleep apnea (lula lt) (pediatric) E11.9 Type 2 diabetes mellitus wit hout complications I27.20 Pulmonary hypertension, unsp ecified Z23 Encounter for immunization Z13. Encounter for screening for other disorder E66.01 Morbid (severe) obesity due to excess calories Z68.42 Body mass index [BMI] 45.0-4 9.9, adult Assessments Date Code Description Provider 07/20/2020 Q85.00 Neurofibromatosis, unspecified L aura Velia,DO 07/20/2020 I50.812 Chronic right heart failure Rajesh Leggett,DO 07/20/2020 I12.9 Hypertensive chronic kidney dise ase with stage 1 through sta Cheli Leggett,DO 07/20/2020 N18.30 Chronic kidney disease, stage 3 unspecified Cheli Leggett,DO 07/20/2020 K76.0 Fatty (change of) liver, not els ewhere classified Cheli Leggett,DO 07/20/2020 I87.2 Venous insufficiency (chronic) ( peripheral) Cheli Leggett,DO 07/20/2020 E78.5 Hyperlipidemia, unspecified Rajesh a Velia,DO 07/20/2020 G47.33 Obstructive sleep apnea (adult) (pediatric) Cheli Leggett,DO 07/20/2020 E11.9 Type 2 diabetes mellitus without complications Cheli Leggett,DO 07/20/2020 I27.20 Pulmonary hypertension, unspecif ied Cheli Leggett,DO 07/20/2020 Z23 Encounter for immunization Cheli Leggett,DO 07/20/2020 Z13.89 Encounter for screening for othe r disorder Cheli Leggett,DO 07/20/2020 E66.01 Morbid (severe) obesity due to e xcess calories Cheli Leggett,DO 07/20/2020 Z68.42 Body mass index [BMI] 45.0-49.9, adult Cheli Leggett,DO 07/19/2020 I12.9 Hypertensive chronic kidney disease with stage 1 through stage 4 chronic kidney disease, or unspecified chronic kidney disease Cheli Leggett,DO 07/19/2020 I12.9 Hypertensive chronic kidney disease with stage 1 through stage 4 chronic kidney disease, or unspecified chronic kidney disease Lab Schedule 07/19/2020 N18.30 Chronic kidney disease, stage 3 unspecified Cheli Leggett,DO 07/19/2020 N18.30 Chronic kidney disease, stage 3 unspecified Lab Schedule 07/19/2020 E11.9 Type 2 diabetes mellitus without complications Cheli Leggett,DO 07/19/2020 E11.9 Type 2 diabetes mellitus without complications Lab Schedule 07/19/2020 E78.5 Hyperlipidemia, unspecified Rajesh Leggett,DO 07/19/2020 E78.5 Hyperlipidemia, unspecified Lab Schedule Plan of Treatment Future Appointment(s):* 12/14/2020 9:40 am - Cheli Leggett DO at [facility] 07/20/2020 - Cheli Leggett DO* Q85.00 Neurofibromatosis, unspecified * I50.812 Chronic right heart failure * I12.9 Hypertensive chronic kidney disease with stage 1 through sta * N18.30 Chronic kidney disease, stage 3 unspecified * K76.0 Fatty (change of) liver, not elsewhere classified * I87.2 Venous insufficiency (chronic) (peripheral) * E78.5 Hyperlipidemia, unspecified * G47.33 Obstructive sleep apnea (adult) (pediatric) * E11.9 Type 2 diabetes mellitus without complications * I27.20 Pulmonary hypertension, unspecified * Z23 Encounter for immunization * Z13.89 Encounter for screening for other disorder * E66.01 Morbid (severe) obesity due to excess calories * Z68.42 Body mass index [BMI] 45.0-49.9, adult * All * New Medication:* Amlodipine Besylate 5 mg - Take One Tablet By Mouth Every Day * Chlorthalidone 25 mg - 1/2 by mouth every day Functional Status Description No Information Available Mental Status Description No Information Available Referrals Refer to Reason for Referral Status Appt Date Jonny Rodriguez MD CONSULT FOR LIVER CIRRHOSIS Patient Noti fied 10/09/2020 [address] [facility] [address] [phone] [facility] POWDER COATER CONSULT FOR KIDNEY LESIONS Sent 09/03/2020 [id number] [address], [facility] [address] [place], [place] [id number] [phone]
--- OUTSIDE RECORDS SUMMARY | 2020-10-31 06:10 | CCD | Continuity of Care Document ---
Author Author Chase LEGGETT Organization Unknown Address [address] [facility] [address] [place] [address] Phone [phone] Care Team Providers Care Facilities Maintenance Worker Name Role Phone Cheli Leggett DO AUTM Unavailable Jose Roberto Nicole MD AUTM Unavailable Dillon Meyers MD AUTM [phone] Problems Active Problems Provider Date Hypertensive heart [...] CPT Code Status Date Vaccine Lot # 33989 Given 07/20/2020 Influenza Vaccin e Quadrivalent Preser/Antibiotic Free Im Use [id number] U-PneuC Given 09/30/2018 Prevnar 13 13901 Given 06/15/2017 Pneumovax 23 [id number] U-Td Refused 07/20/2020 Td(Adult)(Tetanus, Diphtheri a) unspecified 24237 Refused 07/20/2020 Shingrix Zoster Vaccine (HZV), Recombinant, Subunit, Adjuvanted 45789 Refused 09/29/2018 Influenza Virus Vaccine, Quadrivalent (Cciiv4), Derived From Cell 67998 Refused 09/29/2018 Shingrix Zoster Vaccine (HZV), Recombinant, Subunit, Adjuvanted 89863 Refused 09/29/2018 Zoster Vaccine 23024 Refused 09/29/2018 Adacel- Tetanus Diphtheria P ertussis (Age64 & Under) 18037 Refused 09/29/2018 Prevnar 13 85523 Refused 06/15/2017 Influenza Vaccin e Quadrivalent Preser/Antibiotic Free Im Use 411874 Vital Signs Date Vital Result Comment 10/18/2020 [...] H/L Range Note Complete Blood Count 10/11/2020 [facility] [address] [place] [address] [phone] White Blood Count 6.7 10 Normal 4.0-10.0 [...] % Normal 0-0 Comprehensive Metabolic Profil 10/11/2020 [facility] [address] [place] [address] [phone] Glucose, Fasting 121 mg/dL High 70-100 Blood [...] Ratio 1.3 Normal Complete Blood Count 07/19/2020 [facility] Psychology Physician: [place] [address] [phone] WBC 5.1 x10*3/UL 4.1 - 10.9 RBC [...] 2.9 x10*3/UL 2.0 - 7.8 A1c 07/19/2020 [facility] , Psychology Physician: [place] [address] [phone] Hba1c 6.2 % High <5.7 2 Est Avg Glucose 131 mg/dL High 60 - 110 Comprehensive Chem Profile 07/19/2020 [facility], Psychology Physician: [place] [address] [phone] Glucose 113 mg/dL High 74 - 99 [...] 60 mL/min >60 4 Lipid Profile 07/19/2020 [facility] Psychology Physician: [place] [address] [phone] Cholesterol 209 mg/dL High 131 - 200 Triglycerides 151 mg/dL High 30 - 150 HDL Cholesterol 47 mg/dL 35 - 60 LDL (Calculated) 132 CALC 50 - 159 Microalbumin/Creatinine Urine 07/19/2020 [facility], Psychology Physician: [place] [address] [phone] Microalbumin Urine 21.5 mg/L High 1.3 - 20.0 Urine Creatinine 105.9 mg/dL 30.0 - 125.0 Microalb/Creat Ratio 20.3 ug/mg 0.0 - 30.0 Laboratory test finding 07/19/2020 [facility] [address] [place], [place] [id number] [phone] Alpha Fetoprotein Tumor Quant 2.6 NG/ML Normal <8 .1 5 1 Units are mL/min/1.73 m2 Chronic Kidney Disease Staging per NKF: Stage I & II GFR >=60 Normal to Mildly Decreased Stage III GFR 30-59 Moderately Decreased Stage IV GFR 15-29 Severely Decreased Stage V GFR <15 Very Little GFR Left ESRD GFR <15 on OPERATOR CAVITY PUMP 2 Lab Result Notes: Pre-Diabetes 5.7 - [...] LITTLE GFR LEFT ESRD GFR <15 ON OPERATOR CAVITY PUMP 5 THE AFP ASSAY IS PERFORMED O N THE AyalogicAUR BY CHEMILUMINESCENCE AND SHOULD NOT BE COMPARED INTERCHANGEABLY WITH OTHER METHODS. IT SHOULD NOT BE USED ALONE A SCREENING TEST OR DIAGNOSIS FOR THE PRESENCE OR ABSENCE OF MALIGNANT DISEASE. THESE RESULTS ARE NOT INTERPRETABLE IN FEMALES. PREDICTIONS OF DISEASE RECURRENCE SHOULD NOT BE BASED SOLELY ON VALUES OBTAINED FROM SERIAL PATIENT SERUM VALUES. Procedures Date Code Description Status 08/10/2018 [id number] Colonoscopy Completed 09/21/2017 [id number] Diabetic Retinal Eye Exam Comple samira 10/07/2012 [id number] Colonoscopy Completed Medical Devices Description No Information Available Encounters Type Date Location Provider Dx Diagnosis Office Visit 10/18/2020 10:00a [facility] jacobsen DO Z01.810 Encounter for preprocedural cardiovascul ar examination C64.1 Malignant neoplasm of right kidney, except renal pelvis I12.9 Hypertensive chronic kidney disease w stg 1-4/unsp chr kdny N18.30 Chronic kidney disease, stag e 3 unspecified E11.9 Type 2 diabetes mellitus wit hout complications E78.5 Hyperlipidemia, unspecified Q85.00 Neurofibromatosis, unspecifi ed M10.9 Gout, unspecified Office Visit 07/20/2020 9:00[facility] Q85.00 Neurofibromatosis, unspecified I50.812 Chronic right heart [...] hypertension, unsp ecified Z23 Encounter for immunization Z13.89 Encounter for screening for other disorder E66.01 Morbid (severe) obesity due to excess calories Z68.42 Body mass index [BMI] 45.0-4 9.9, adult Assessments Date Code Description Provider 10/18/2020 Z01.810 Encounter for preprocedural card iovascular examination Cheli Leggett, 10/18/2020 C64.1 Malignant neoplasm of right kidn ey, except renal pelvis Cheli Leggett, 10/18/2020 I12.9 Hypertensive chronic kidney dise ase with stage 1 through sta Cheli Leggett, 10/18/2020 N18.30 Chronic kidney disease, stage 3 unspecified Cheli Leggett, 10/18/2020 E11.9 Type 2 diabetes mellitus without complications Cheli Leggett, 10/18/2020 E78.5 Hyperlipidemia, unspecified Rajesh Leggett,DO 10/18/2020 Q85.00 Neurofibromatosis, unspecified L chelsea Leggett,DO 10/18/2020 M10.9 Gout, unspecified Cheli Leggett,DO 07/20/2020 Q85.00 Neurofibromatosis, unspecified L aura Velia,DO 07/20/2020 I50.812 Chronic right heart failure Rajesh Leggett,DO 07/20/2020 I12.9 Hypertensive chronic kidney dise ase with stage 1 through sta Cheli Velia,DO 07/20/2020 N18.30 Chronic kidney disease, stage 3 unspecified Cheli Velia,DO 07/20/2020 K76.0 Fatty (change of) liver, not els ewhere classified Cheli Leggett,DO 07/20/2020 I87.2 Venous insufficiency (chronic) ( peripheral) Cheli Velia,DO 07/20/2020 E78.5 Hyperlipidemia, unspecified Rajesh cruz Velia,DO 07/20/2020 G47.33 Obstructive sleep apnea (adult) (pediatric) Cheli Velia,DO 07/20/2020 E11.9 Type 2 diabetes mellitus without complications Cheli Velia,DO 07/20/2020 I27.20 Pulmonary hypertension, unspecif ied Cheli Leggett,DO 07/20/2020 Z23 Encounter for immunization Cheli Velia,DO 07/20/2020 Z13.89 Encounter for screening for othe r disorder Cheli Velia,DO 07/20/2020 E66.01 Morbid (severe) obesity due to e xcess calories Cheli Velia,DO 07/20/2020 Z68.42 Body mass index [BMI] 45.0-49.9, adult Cheli Velia,DO 07/19/2020 I12.9 Hypertensive chronic kidney disease with stage 1 through stage 4 chronic kidney disease, or unspecified chronic kidney disease Cheli Velia,DO 07/19/2020 I12.9 Hypertensive chronic kidney disease with stage 1 through stage 4 chronic kidney disease, or unspecified chronic kidney disease Lab Schedule 07/19/2020 N18.30 Chronic kidney disease, stage 3 unspecified Cheli Velia,DO 07/19/2020 N18.30 Chronic kidney disease, stage 3 unspecified Lab Schedule 07/19/2020 E11.9 Type 2 diabetes mellitus without complications Cheli Leggett,DO 07/19/2020 E11.9 Type 2 diabetes mellitus without complications Lab Schedule 07/19/2020 E78.5 Hyperlipidemia, unspecified Rajesh Leggett DO 07/19/2020 E78.5 Hyperlipidemia, unspecified Lab Schedule Plan of Treatment Future Appointment(s):* 12/14/2020 9:40 am - Cheli Leggett DO at [facility] 07/20/2020 - Cheli Leggett DO* [...] LIVER CIRRHOSIS Patient Noti fied 10/09/2020 [address] [facility] [address] [phone] [facility] HYPERBARIC TECHNOLOGIST CONSULT FOR KIDNEY LESIONS Sent 09/03/2020 [address], [place] [address] [phone]
--- OUTSIDE RECORDS SUMMARY | 2020-10-31 06:10 | CCD | Continuity of Care Document ---
Author Organization Unknown Address Unknown Phone Unavailable Care Team Providers Care Obstetrics Tech Name Role Phone Cheli Gunn DO [facility] Unavailable Jose Roberto Nicole MD [facility] Unavailable Dillon Meyers MD [facility] [phone] Problems Active Problems Provider Date Hypertensive heart disease without congestive heart failure Cheli Gunn DO Onset: 05/11/2012 Gout Cheli Gunn DO Onset: 05/11/2012 Neurofibromatosis syndrome Cheli Gunn DO Onset: 2011 Social History Type Date Description Comments Sex Unknown ETOH Use Rarely consumes alcohol Tobacco Use Start: Unknown Patient has never smoked Allergies, Adverse Reactions, Alerts Description No Known Drug Allergies Medications Active Medications SIG Qnty Indications Ordering Provide r Date Amlodipine Besylate 5mg Tablets Take One Tablet By Mouth Every Day 30tabs Cheli Gunn DO 2019 Chlorthalidone 25mg Tablets 1/2 by mouth every day 30bs Cheli Gunn DO 07/20/2020 Acetaminophen ER 650mg Tablets ER 1 by mouth every 8 hours as needed for pain 90bs Cheli jacobsen DO 07/07/2019 Prevnar 13 Suspension 0.5 cubic centimeters x 1 1units Cheli Gunn DO 09/29/2018 Irbesartan 300mg Tablets Take One Tablet By Mouth Every Day 90tabs Cheli Gunn DO 04/01/2018 Magnesium Oxide 400(241.3mg) mg Ta blets take one tablet by mouth twice a day 180tabs Cheli Gunn DO 2016 Metformin HCL ER 500mg Tablets ER 24HR Take Two Tablets By Mouth Twice A Day 360tabs Cheli goins DO 01/24/2016 Allopurinol 100mg Tablets Take Two Tablets By Mouth Every Day 180tabs Cheli Gunn DO 02/25/2011 Aspirin 81mg Tablets 1 po qd Cheli GunnDO 07/12/2010 Atorvastatin Calcium 80mg Tablets 1 by mouth every day Jose Roberto Nicole MD Oxygen 2Liters Misc vi a nasal canula qhs Jose Roberto Nicole MD Medications Administered in Office Medication SIG Qnty Indications Ordering Provider Date Administration Of Flu Vaccine Inj ection Cheli GunnDO 07/20/2020 Immunizations CPT Code Status Date Vaccine Lot # [id number] Given 07/20/2020 Influenza Vaccin e Quadrivalent Preser/Antibiotic Free Im Use [id number] U-PneuC Given 09/30/2018 Prevnar 13 [id number] Given 06/15/2017 Pneumovax 23 [id number] U-Td Refused 07/20/2020 Td(Adult)(Tetanus, Diphtheri a) unspecified 26704 Refused 07/20/2020 Shingrix Zoster Vaccine (HZV), Recombinant, Subunit, Adjuvanted 90974 Refused 09/29/2018 Influenza Virus Vaccine, Quadrivalent ([id number]), Derived From Cell 66648 Refused 09/29/2018 Shingrix Zoster Vaccine (HZV), Recombinant, Subunit, Adjuvanted 43759 Refused 09/29/2018 Zoster Vaccine 71885 Refused 09/29/2018 Adacel- Tetanus Diphtheria P ertussis (Age64 & Under) 26610 Refused 09/29/2018 Prevnar 13 93231 Refused 06/15/2017 Influenza Vaccin e Quadrivalent Preser/Antibiotic Free Im Use 666210 Vital Signs Date Vital Result Comment 07/20/2020 8:36am BP Systolic 132 mmHg BP Diastolic 62 mmHg Heart Rate 94 /min Height 70 inches 5'10" Weight 337.38 lb O2 % BldC Oximetry 97 % RM Air BMI (Body Mass Index) 48.4 kg/m2 07/07/2019 10:11am BP Systolic 120 mmHg BP Diastolic 70 mmHg Heart Rate 87 /min Height 70 inches 5'10" Weight 340.00 lb BMI (Body Mass Index) 48.8 kg/m2 Results Test Acquired Date Facility Test Result H/L Range Note Complete Blood Count 10/11/2020 [facility] enter [address] [place] [address] [phone] White Blood Count 6.7 10 Normal 4.0-10.0 [...] % Normal 0-0 Comprehensive Metabolic Profil 10/11/[address] [id number] [phone] Glucose, Fasting 121 mg/dL High 70-100 Blood [...] Ratio 1.3 Normal Complete Blood Count 07/19/2020 [facility] Daycare Teacher: Dr Kurt Prather [place], [place] [id number] [phone] WBC 5.1 x10*3/UL 4.1 - 10.9 RBC [...] 2.9 x10*3/UL 2.0 - 7.8 A1c 07/19/2020 [facility] , Daycare Teacher: [place] [address] [phone] Hba1c 6.2 % High <5.7 2 Est Avg Glucose 131 mg/dL High 60 - 110 Comprehensive Chem Profile 07/19/2020 [facility] Daycare Teacher: [place] [address] [phone] Glucose 113 mg/dL High 74 - 99 [...] 60 mL/min >60 4 Lipid Profile 07/19/2020 [facility] , Daycare Teacher: [place] [address] [phone] Cholesterol 209 mg/dL High 131 - 200 Triglycerides 151 mg/dL High 30 - 150 HDL Cholesterol 47 mg/dL 35 - 60 LDL (Calculated) 132 CALC 50 - 159 Microalbumin/Creatinine Urine 07/19/2020 [facility] Daycare Teacher: [place] [address] [phone] Microalbumin Urine 21.5 mg/L High 1.3 - 20.0 Urine Creatinine 105.9 mg/dL 30.0 - 125.0 Microalb/Creat Ratio 20.3 ug/mg 0.0 - 30.0 Laboratory test finding 07/19/2020 [facility] [address], [place] [id number] [phone] Alpha Fetoprotein Tumor Quant 2.6 NG/ML Normal <8 .1 5 1 Units are mL/min/1.73 m2 Chronic Kidney Disease Staging per NKF: Stage I & II GFR >=60 Normal to Mildly Decreased Stage III GFR 30-59 Moderately Decreased Stage IV GFR 15-29 Severely Decreased Stage V GFR <15 Very Little GFR Left ESRD GFR <15 on CERTIFIED FINANCIAL PLANNER 2 Lab Result Notes: Pre-Diabetes 5.7 - [...] LITTLE GFR LEFT ESRD GFR <15 ON CERTIFIED FINANCIAL PLANNER 5 THE AFP ASSAY IS PERFORMED O N THE KIT digitalAUR BY CHEMILUMINESCENCE AND SHOULD NOT BE COMPARED INTERCHANGEABLY WITH OTHER METHODS. IT SHOULD NOT BE USED ALONE A SCREENING TEST OR DIAGNOSIS FOR THE PRESENCE OR ABSENCE OF MALIGNANT DISEASE. THESE RESULTS ARE NOT INTERPRETABLE IN FEMALES. PREDICTIONS OF DISEASE RECURRENCE SHOULD NOT BE BASED SOLELY ON VALUES OBTAINED FROM SERIAL PATIENT SERUM VALUES. Procedures Date Code Description Status 08/10/2018 [id number] Colonoscopy Completed 09/21/2017 [id number] Diabetic Retinal Eye Exam Comple samira 10/07/2012 [id number] Colonoscopy Completed Medical Devices Description No Information Available Encounters Type Date Location Provider Dx Diagnosis Office Visit 07/20/2020 9:00a [facility] Cheli Gunn DO Q85.00 Neurofibromatosis, unspecified I50.812 Chronic right [...] Description Provider 07/20/2020 Q85.00 Neurofibromatosis, unspecified L chelsea Gunn,DO 07/20/2020 I50.812 Chronic right heart failure Rajesh Gunn,DO 07/20/2020 I12.9 Hypertensive chronic kidney dise ase with stage 1 through sta Cheli Gunn,DO 07/20/2020 N18.30 Chronic kidney disease, stage 3 unspecified Cheli Gunn,DO 07/20/2020 K76.0 Fatty (change of) liver, not els ewhere classified Cheli Gunn,DO 07/20/2020 I87.2 Venous insufficiency (chronic) ( peripheral) Cheli Gunn,DO 07/20/2020 E78.5 Hyperlipidemia, unspecified Rajesh a Velia,DO 07/20/2020 G47.33 Obstructive sleep apnea (adult) (pediatric) Cheli Gunn,DO 07/20/2020 E11.9 Type 2 diabetes mellitus without complications Cheli Gunn,DO 07/20/2020 I27.20 Pulmonary hypertension, unspecif ied Cheli Gunn,DO 07/20/2020 Z23 Encounter for immunization Cheli Gunn,DO 07/20/2020 Z13.89 Encounter for screening for othe r disorder Cheli Gunn,DO 07/20/2020 E66.01 Morbid (severe) obesity due to e xcess calories Cheli Gunn,DO 07/20/2020 Z68.42 Body mass index [BMI] 45.0-49.9, adult Cheli Gunn,DO 07/19/2020 I12.9 Hypertensive chronic kidney disease with stage 1 through stage 4 chronic kidney disease, or unspecified chronic kidney disease Cheli Gunn,DO 07/19/2020 I12.9 Hypertensive chronic kidney disease with stage 1 through stage 4 chronic kidney disease, or unspecified chronic kidney disease Lab Schedule 07/19/2020 N18.30 Chronic kidney disease, stage 3 unspecified Cheli Gunn, 07/19/2020 N18.30 Chronic kidney disease, stage 3 unspecified Lab Schedule 07/19/2020 E11.9 Type 2 diabetes mellitus without complications Cheli Gunn,DO 07/19/2020 E11.9 Type 2 diabetes mellitus without complications Lab Schedule 07/19/2020 E78.5 Hyperlipidemia, unspecified Rajesh Gunn,DO 07/19/2020 E78.5 Hyperlipidemia, unspecified Lab Schedule Plan of Treatment Future Appointment(s):* 10/18/2020 10:00 am - Cheli Gunn DO at [facility] * 12/14/2020 9:40 am - Cheli Gunn DO at [facility] 07/20/2020 - Cheli Gunn DO* Q85.00 Neurofibromatosis, unspecified * I50.812 Chronic [...] Description No Information Available Referrals Refer to Dr Reason for Referral Status Appt Date Jonny Rodriguez MD CONSULT FOR LIVER CIRRHOSIS Patient Noti fied 10/09/2020 [address] [facility] [id number] [phone] [facility] [employer] CONSULT FOR KIDNEY LESIONS Sent 09/03/2020 [id number], [place] [address] [phone]
--- OUTSIDE RECORDS SUMMARY | 2020-10-31 06:11 | CCD ---
Author Author [facility] Organization [facility] Address Unknown Phone Unavailable Care Team Providers Care Green Building Design Specialist Name Role Phone Lv Rodriguez MD Unavailable Unavailable Lv Rodriguez MD Unavailable Unavailable Lv Rodriguez MD Unavailable Unavailable Lv Rodriguez MD Unavailable Unavailable Lv Rodriguez MD Unavailable Unavailable Lv Rodriguez MD Unavailable Unavailable Lv Rodriguez MD Unavailable Unavailable Lv Rodriguez MD Unavailable Unavailable Lv Rodriguez MD Unavailable Unavailable Lv Rodriguez MD Unavailable Unavailable Lv Rodriguez MD Unavailable Unavailable Lv Rodriguez MD Unavailable Unavailable Lv Rodriguez MD Unavailable Unavailable Lv Rodriguez MD Unavailable Unavailable Lv Rodriguez MD Unavailable Unavailable Lv Rodriguez MD Unavailable Unavailable Lv Rodriguez MD Unavailable Unavailable Lv Rodriguez MD Unavailable Unavailable Lv Rodriguez MD Unavailable Unavailable Lv Rodriguez MD Unavailable Unavailable Lv Rodriguez MD Unavailable Unavailable Lv Rodriguez MD Unavailable Unavailable Lv Rodriguez MD Unavailable Unavailable Lv Rodriguez MD Unavailable Unavailable Lv Rodriguez MD Unavailable Unavailable Lv Rodriguez MD Unavailable Unavailable Lv Rodriguez MD Unavailable Unavailable Lv Rodriguez MD Unavailable Unavailable Lv Rodriguez MD Unavailable Unavailable Lv Rodriguez MD Unavailable Unavailable vL Rodriguez MD Unavailable Unavailable Lv Rodriguez MD Unavailable Unavailable Lv Rodriguez MD Unavailable Unavailable Lv Rodriguez MD Unavailable Unavailable Lv Rodriguez MD Unavailable Unavailable Lv Rodriguez MD Unavailable Unavailable Lv Rodriguez MD Unavailable Unavailable Jennifer, S Jonny MD Unavailable Unavailable Jennifer, S Jonny MD Unavailable Unavailable Jennifer, S Jonny MD Unavailable Unavailable Jennifer, S Jonny MD Unavailable Unavailable Jennifer, S Jonny MD Unavailable Unavailable Jennifer, S Jonny MD Unavailable Unavailable Jennifer, S Jonny MD Unavailable Unavailable Jennifer, S Jonny MD Unavailable Unavailable Jennifer, S Jonny MD Unavailable Unavailable Jennifer, S Jonny MD Unavailable Unavailable Jennifer, S Jonny MD Unavailable Unavailable Jennifer, S Jonny MD Unavailable Unavailable Jennifer, S Jonny MD Unavailable Unavailable Velia, Cheli DO Unavailable Unavailable Velia, Hceli DO Unavailable Unavailable Velia, Cheli DO Unavailable Unavailable Velia, Cheli DO Unavailable Unavailable Velia, Cheli DO Unavailable Unavailable Velia, Cheli DO Unavailable Unavailable Velia, Cheli DO Unavailable Unavailable Velia, Cheli DO Unavailable Unavailable Velia, Cheli DO Unavailable Unavailable Velia, Cheli DO Unavailable Unavailable Velia, Cheli DO Unavailable Unavailable Velia, Cheli DO Unavailable Unavailable Velia, Cheli DO Unavailable Unavailable Velia, Cheli DO Unavailable Unavailable Velia, Cheli DO Unavailable Unavailable Velia, Cheli DO Unavailable Unavailable Velia, Cheli DO Unavailable Unavailable Velia, Cheli DO Unavailable Unavailable Velia, Cheli DO Unavailable Unavailable Velia, Cheli DO Unavailable Unavailable Velia, Cheli DO Unavailable Unavailable Velia, Cheli DO Unavailable Unavailable Velia, Cheli DO Unavailable Unavailable Velia, Cheli DO Unavailable Unavailable Velia, Cheli DO Unavailable Unavailable Velia, Cheli DO Unavailable Unavailable Velia, Cheli DO Unavailable Unavailable Velia, Cheli DO Unavailable Unavailable Velia, Cheli DO Unavailable Unavailable Velia, Cheli DO Unavailable Unavailable Velia, Cheli DO Unavailable Unavailable Velia, Cheli DO Unavailable Unavailable Velia, Cheli DO Unavailable Unavailable Velia, Cheli DO Unavailable Unavailable Velia, Cheli DO Unavailable Unavailable Velia, Cheli DO Unavailable Unavailable Velia, Cheli DO Unavailable Unavailable Velia, Cheli DO Unavailable Unavailable Velia, Cheli DO Unavailable Unavailable Velia, Cheli DO Unavailable Unavailable Velia, Cheli DO Unavailable Unavailable Velia, Cheli DO Unavailable Unavailable Velia, Cheli DO Unavailable Unavailable Velia, Cheli DO Unavailable Unavailable Velia, Cheli DO Unavailable Unavailable Velia, Cheli DO Unavailable Unavailable Velia, Cheli DO Unavailable Unavailable Velia, Cheli DO Unavailable Unavailable Velia, Cheli DO Unavailable Unavailable Velia, Cheli DO Unavailable Unavailable Velia, Cheli DO Unavailable Unavailable Velia, Cheli DO Unavailable Unavailable Velia, Cheli DO Unavailable Unavailable Velia, Cheli DO Unavailable Unavailable Velia, Cheli DO Unavailable Unavailable Velia, Cheli DO Unavailable Unavailable Velia, Cheli DO Unavailable Unavailable Velia, Cheli DO Unavailable Unavailable Velia, Cheli DO Unavailable Unavailable Velia, Cheli DO Unavailable Unavailable Velia, Cheli DO Unavailable Unavailable Velia, Cheli DO Unavailable Unavailable Velia, Cheli DO Unavailable Unavailable Velia, Cheli DO Unavailable Unavailable Velia, Cheli DO Unavailable Unavailable Velia, Cheli DO Unavailable Unavailable Velia, Cheli DO Unavailable Unavailable Velia, Cheli DO Unavailable Unavailable Velia, Cheli DO Unavailable Unavailable Velia, Cheli DO Unavailable Unavailable Velia, Cheli DO Unavailable Unavailable Velia, Cheli DO Unavailable Unavailable Re-disclosure Warning The records that you are about to access may contain information from federally-assisted alcohol or drug abuse programs. If such information is present, then the following federally mandated warning applies: This information has been disclosed to you from records protected by federal confidentiality rules (42 CFR part 2). The federal rules prohibit you from making any further disclosure of this information unless further disclosure is expressly permitted by the written consent of the person to whom it pertains or as otherwise permitted by 42 CFR part 2. A general authorization for the release of medical or other information is NOT sufficient for this purpose. The Federal rules restrict any use of the information to criminally investigate or prosecute any alcohol or drug abuse patient.The records that you are about to access may contain highly sensitive health information, the redisclosure of which is protected by Article 27-F of the [facility] Public Health law. If you continue you may have access to information: Regarding HIV / AIDS; Provided by facilities licensed or operated by the [facility] Office of Mental Health; or Provided by the [facility] Office for People With Developmental Disabilities. If such information is present, then the following [facility] mandated warning applies: This information has been disclosed to you from confidential records which are protected by state law. State law prohibits you from making any further disclosure of this information without the specific written consent of the person to whom it pertains, or as otherwise permitted by law. Any unauthorized further disclosure in violation of state law may result in a fine or nursing home sentence or both. A general authorization for the release of medical or other information is NOT sufficient authorization for further disc losure. Family History Family Member Name Family Member Gender Family Member Status Date o f Status Description Data Source(s) Unknown Unknown Problem [facility], ) Unknown Male Problem [facility] Unknown Male Problem [facility] ([facility]) Unknown Unknown Problem [facility] ([facility] Encounters Encounter Providers Location Date Indications Data Source(s ) Outpatient Attender: Cheli Dawkins 10/18 09:00:00 AM EST MEDENT ([facility] ) Outpatient Attender: Jonny Rodriguez MD Main Office 10/09/2020 10:45:00 AM EST MEDENT ([facility]) Outpatient [address] [facility] [id number] 10/01/2020 12:00:00 AM EST eCW1 ([facility]) Unknown [address] [facility] [facility] [facility] [address] [id number] 09/17/2020 12:00:00 AM EST eCW1 ([facility]) Unknown [address] [address] [id number] 09/17/2020 12:00:00 AM EST eCW1 ([facility]) Outpatient [address] [address] [facility] [address] [id number] 09/17/2020 12:00:00 AM EST eCW1 ([facility]) Outpatient [address] [facility] [facility] [address] [id number] 09/11/2020 12:00:00 AM EST eCW1 ([facility]) Outpatient Attender: Cheli Dawkins 07/20 08:00:00 AM EST MEDENT ([facility] ) Immunizations Vaccine Date Status Description Data Source(s) Shingrix Zoster Vaccine (HZV), Recombinant, Subunit, A djuvanted 07/20/2020 08:06:00 AM EST completed [facility] Note that this Td is not adsorbed. 07/20/2020 08:06:00 AM EST compl eted MEDENT ([facility]) Influenza, injectable, MDCK, preservative free, candi valent 07/20/2020 07:56:00 AM EST completed [facility] ([facility]) Medications Medication Brand Name Start Date Product Form Dose Route Admi nistrative Instructions Pharmacy Instructions Status Indications Reaction Description Data Source(s) 5 mg 07/20/2020 12:00:00 AM EST tablet 30 TAKE ONE TABLET BY MOUTH ONCE DAILY TAKE ONE TABLET BY MOUTH ONCE DAILY SOLD: 10/25/2020 [facility] Amlodipine 5 MG Oral Tablet Amlodipine Besylate 07/20/2020 12:00:00 A M EST active MED[facility] ([facility]) Chlorthalidone 25 MG Oral Tablet Chlorthalidone 07/20/2020 12:00:00 A M EST ORAL active MED[facility] ([facility]) 5 mg 07/20/2020 12:00:00 AM EST tablet 30 TAKE ONE TABLET BY MOUTH ONCE DAILY TAKE ONE TABLET BY MOUTH ONCE DAILY SOLD: 09/24/2020 [facility] Administration Of Flu Vaccine 07/20/2020 12:00:00 AM EST completed MED[facility] ([facility]) Medication administered onsite 5 mg 07/20/2020 12:00:00 AM EST tablet 30 TAKE ONE TABLET BY MOUTH ONCE DAILY TAKE ONE TABLET BY MOUTH ONCE DAILY SOLD: 07/22/2020 [facility] 5 mg 07/20/2020 12:00:00 AM EST tablet 30 TAKE ONE TABLET BY MOUTH ONCE DAILY TAKE ONE TABLET BY MOUTH ONCE DAILY SOLD: 08/24/2020 [facility] 25 mg 07/20/2020 12:00:00 AM EST tablet 30 TAKE 1/2 TABLET BY MOUTH EVERY DAY TAKE 1/2 TABLET BY MOUTH EVERY DAY SOLD: 07/22/2020 [facility] 25 mg 07/20/2020 12:00:00 AM EST tablet 30 TAKE 1/2 TABLET BY MOUTH EVERY DAY TAKE 1/2 TABLET BY MOUTH EVERY DAY SOLD: 09/24/2020 [facility] 100 mg 05/11/2020 12:00:00 AM EDT tablet 180 TAKE TWO TABLETS BY MOUTH EVERY DAY TAKE TWO TABLETS BY MOUTH EVERY DAY SOLD: 05/14/2020 [facility] 100 mg 05/11/2020 12:00:00 AM EDT tablet 180 TAKE TWO TABLETS BY MOUTH EVERY DAY TAKE TWO TABLETS BY MOUTH EVERY DAY SOLD: 08/07/2020 [facility] 500 mg 02/02/2020 12:00:00 AM EDT tablet extended release 24 hr 360 TAKE TWO TABLETS BY MOUTH TWICE A DAY TAKE TWO TABLETS BY MOUTH TWICE A DAY SOLD: 02/07/2020 [facility] 300 mg 02/02/2020 12:00:00 AM EDT tablet 90 TAKE ONE TABLET BY MOUTH EVERY DAY TAKE ONE TABLET BY MOUTH EVERY DAY SOLD: 08/07/2020 [facility] 300 mg 02/02/2020 12:00:00 AM EDT tablet 90 TAKE ONE TABLET BY MOUTH EVERY DAY TAKE ONE TABLET BY MOUTH EVERY DAY SOLD: 05/08/2020 [facility] 500 mg 02/02/2020 12:00:00 AM EDT tablet extended release 24 hr 360 TAKE TWO TABLETS BY MOUTH TWICE A DAY TAKE TWO TABLETS BY MOUTH TWICE A DAY SOLD: 08/07/2020 [facility] 300 mg 02/02/2020 12:00:00 AM EDT tablet 90 TAKE ONE TABLET BY MOUTH EVERY DAY TAKE ONE TABLET BY MOUTH EVERY DAY SOLD: 02/07/2020 [facility] 10 mg 02/02/2020 12:00:00 AM EDT tablet 90 TAKE ONE TABLET BY MOUTH EVERY DAY TAKE ONE TABLET BY MOUTH EVERY DAY SOLD: 05/08/2020 [facility] 10 mg 02/02/2020 12:00:00 AM EDT tablet 90 TAKE ONE TABLET BY MOUTH EVERY DAY TAKE ONE TABLET BY MOUTH EVERY DAY SOLD: 02/07/2020 [facility] 500 mg 02/02/2020 12:00:00 AM EDT tablet extended release 24 hr 360 TAKE TWO TABLETS BY MOUTH TWICE A DAY TAKE TWO TABLETS BY MOUTH TWICE A DAY SOLD: 05/08/2020 [facility] 100 mg 05/11/2019 12:00:00 AM EDT tablet 180 TAKE TWO TABLETS BY MOUTH EVERY DAY TAKE TWO TABLETS BY MOUTH EVERY DAY SOLD: 11/13/2019 [facility] 100 mg 05/11/2019 12:00:00 AM EDT tablet 180 TAKE TWO TABLETS BY MOUTH EVERY DAY TAKE TWO TABLETS BY MOUTH EVERY DAY SOLD: 02/13/2020 [facility] 10 mg 02/08/2019 12:00:00 AM EDT tablet 90 TAKE ONE TABLET BY MOUTH EVERY DAY TAKE ONE TABLET BY MOUTH EVERY DAY SOLD: 11/07/2019 [facility] 500 mg 02/08/2019 12:00:00 AM EDT tablet extended release 24 hr 360 TAKE TWO TABLETS BY MOUTH TWICE A DAY TAKE TWO TABLETS BY MOUTH TWICE A DAY SOLD: 11/07/2019 [facility] 300 mg 01/27/2019 12:00:00 AM EDT tablet 90 TAKE ONE TABLET BY MOUTH EVERY DAY TAKE ONE TABLET BY MOUTH EVERY DAY SOLD: 11/07/2019 [facility] Insurance Providers Payer name Policy type / Coverage type Policy ID Covered republican ID Covered republican's relationship to [place] Policy [place] Plan Information MEDICARE BLUE PPO 306 [id number] SP [id number] MEDICARE BLUE PPO 306 [id number] SP [id number] MEDICARE BLUE PPO 306 [id number] SP [id number] EXCELLUS BCBS B [id number] S [id number] MEDICARE BLUE PPO 306 [id number] SP [id number] MEDICARE BLUE PPO 306 [id number] SP [id number] BS [place] Tr[place] Medigap Part B [id number] BS [place] Tr[place] Medigap Part B [id number] Self [id number] Medicare Blue Ppo Commercial [id number] Self [id number] BS [place] Tr[place] Medigap Part B [id number] Medicare Blue Ppo Commercial [id number] Self [id number] Medicare Blue Ppo Commercial [id number] Self [id number] BS [place] Trad/MX Medigap Part B [id number] BCBS Medicare Blue U/W Commercial [id number] Self [id number] BCBS Excellus U/W Medigap Part B [id number] Self [id number] Aetna Medigap Part B [id number] Self [id number] [employer] BC/[place] Of [place] Medigap Part B [id number] Self [id number] BCBS Medicare Blue U/W Commercial [id number] Self [id number] Medicare Blue Ppo Commercial [id number] Self [id number] BS [place] Trad/MX Commercial [id number] BCBS Medicare Blue U/W Commercial [id number] Self [id number] BCBS Excellus Ppo U/W Medigap Part B [id number] BS [place] Trad/MX Commercial [id number] BCBS Medicare Blue U/W Commercial [id number] Self [id number] BCBS Medicare Blue U/W Commercial [id number] Self [id number] BS [place] Trad/MX Commercial Ppo [id number] Ppo [id number] BS [place] Trad/MX Commercial Self Medicare Blue Ppo Commercial [id number] Self [id number] BCBS Medicare Blue U/W Commercial Self Aetna Medigap Part B Self Caremark BC/BS Of [place] Medigap Part B Self BCBS Excellus Ppo U/W Commercial Self ADVANTRA FREEDOM [id number] SP [id number] BCBS OF [place] WATN [id number] EXCELLUS BCBS P [id number] P [id number] [id number] BC/BS OF [place] P [id number] P SZ [id number] Problems, Conditions, and Diagnoses Code Display Name Description Problem Type Effective Dates Data Source(s) 24536237 Cirrhosis of liver Cirrhosis of liver Problem 10/2020 12:00:00 AM EST MEDENT ([facility]) 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 Problem 09/30/2020 12:00:00 AM EST eCW1 ([facility]) Z01.818 Pre-procedure evaluation check Preop testing Problem 09/30/2020 12:00:00 AM EST eCW1 ([facility]) C64.1 Malignant tumor of kidney Renal cell carcinoma of righ t kidney Problem 09/30/2020 12:00:00 AM EST eCW1 ([facility]) N28.89 Renal mass Renal mass Problem 08/27/2020 12:00:00 AM ES T eCW1 ([facility]) Results ID Date Data Source [id number] 10/26/2020 10:45:00 AM EST [facility] Name Value Range Interpretation Code Description Data Stephanie rce(s) Supporting Document(s) SARS coronavirus 2 RNA Not Detected [facility] [place] This lab was ordered by [facility] and reported by [facility]. ID Date Data Source [id number] 10/11/2020 10:23:00 AM EST MEDENT ([facility]) Name Value Range Interpretation Code Description Data Stephanie rce(s) Supporting Document(s) Blood Urea Nitrogen 34 mg/dL 7-18 MED[facility] ([facility]) Glucose, Fasting 121 mg/dL 70-100 MEDENT ([facility]) Creatinine For GFR 1.89 mg/dL 0.70-1.30 MEDENT ([facility]) Glomerular Filtration Rate 37.5 MED ENT ([facility]) <content>Units are mL/min/1.73 m2</content>
<content></content>
<content>Chronic Kidney Disease Staging per NKF:</content>
<content></content>
<content>Stage I & II GFR >=60 Normal to Mildly Decreased</content>
<content>Stage III GFR 30-59 Moderately Decreased</content>
<content>Stage IV GFR 15-29 Severely Decreased</content>
<content>Stage V GFR <15 Very Little GFR Left</content>
<content>ESRD GFR <15 on RIVET MACHINE OPERATOR</content>
<content></content> Potassium Serum 4.3 meq/L 3.5-5.1 MEDENT ([facility]) Chloride Level 107 meq/L 98-107 MED[facility] ([facility]) Sodium Level 142 meq/L 136-145 MED[facility] ([facility]) Anion Gap 8 meq/L 8-16 [facility] [facility]) Carbon Dioxide Level 27 meq/L 21-32 [facility] ([facility]) Calcium Level 9.6 mg/dL 8.8-10.2 MED[facility] ([facility]) Ast/Sgot 30 U/L 7-37 [facility] [facility]) Alkaline Phosphatase 144 U/L 45-117 [facility] Alt/SGPT 46 U/L 12-78 [facility] [facility]) Total Protein 6.9 GM/DL 6.4-8.2 [facility] ([facility]) Bilirubin,Total 2.4 mg/dL 0.2-1.0 [facility] ([facility]) Albumin/Globulin Ratio 1.3 MEDENT ([facility]) Albumin 3.9 GM/DL 3.2-5.2 [facility] [facility]) ID Date Data Source [id number] 10/11/2020 10:23:00 AM EST MEDENT ([facility]) Name Value Range Interpretation Code Description Data Stephanie rce(s) Supporting Document(s) White Blood Count 6.7 10 4.0-10.0 [facility] Red Blood Count 4.45 10 4.30-6.10 [facility] Hemoglobin 13.4 g/dL 13.5-17.5 [facility] Hematocrit 42.0 % 42.0-52.0 [facility] Mean Corpuscular Volume 94.4 fl 80.0-96.0 MEDENT ([facility]) Mean Corpuscular Hemoglobin 30.1 pg 27.0-33.0 [place] [facility] ([facility]) Mean Corpuscular HGB Conc 31.9 g/dL 32.0-36.5 MEDE NT ([facility]) Red Cell Distribution Width 15.0 % 11.5-14.5 [place] [facility] ([facility]) Platelet Count, Automated 170 10 150-450 MEDE NT ([facility]) Nucleated Red Blood Cell % 0.0 % 0-0 MED ENT ([facility]) ID Date Data Source PT & APTT 09/17/2020 12:00:00 AM EST eCW1 ([facility]) Name Value Range Interpretation Code Description Data Stephanie rce(s) Supporting Document(s) 34.5 24.2-38.5 eCW1 ([facility]) 14.2 12.5-14.3 eCW1 ([facility]) 1.07 eCW1 ([facility]) ID Date Data Source Basic Metabolic Profile (BMP) 09/17/2020 12:00:00 AM EST eCW 1 ([facility]) Name Value Range Interpretation Code Description Data Stephanie rce(s) Supporting Document(s) 116 70-100 eCW1 ([facility]) 1.52 0.70-1.30 eCW1 ([facility]) 34 7-18 eCW1 ([facility]) 140 136-145 eCW1 ([facility]) 4.1 3.5-5.1 eCW1 ([facility]) 107 98-107 eCW1 ([facility]) 48.2 >42 eCW1 ([facility]) 27 21-32 eCW1 ([facility]) 9.3 8.8-10.2 eCW1 ([facility]) ID Date Data Source CBC - Complete Blood Count 09/17/2020 12:00:00 AM EST eCW1 ( [facility]) Name Value Range Interpretation Code Description Data Stephanie rce(s) Supporting Document(s) 4.41 4.30-6.10 eCW1 ([facility]) 4.9 4.0-10.0 eCW1 ([facility]) 41.5 42.0-52.0 eCW1 ([facility]) 94.1 80.0-96.0 eCW1 ([facility]) 12.9 13.5-17.5 eCW1 ([facility]) 29.3 27.0-33.0 eCW1 ([facility]) 149 150-450 eCW1 ([facility]) 15.1 11.5-14.5 eCW1 ([facility]) 31.1 32.0-36.5 eCW1 ([facility]) ID Date Data Source [id number] 08/23/2020 12:00:00 AM EST [facility] Cheli Gunn DO Patient Name: JOYA [id number] [facility] Date of : 1950[address] Date of Exam: 08/23/2020JaynaCLARA cool [id number]#: Fax: [phone] EXAM: MRI ABDOMEN WITHOUT&WITH CONTRASTCLINICAL INFORMATION: Followup renal cyst.Comparison MRI 03/07/2013.Pre and post contrast 3T MRI of the abdomen was performed utilizing varioussequences. Gadolinium utilized: 15 cc of ProHance.The liver demonstrates a micronodular surface contour. There is a patentumbilical vein. There is mild splenomegaly with no intrinsic abnormalityof the spleen. The findings suggest portal hypertension and likelycirrhosis of the liver.Several lesions are seen in the liver which are hyperintense on T2. In thelateral left lobe of the liver superiorly, there is a hyperintense lesionwhich does not enhance consistent with a cyst measuring 2.1 cm in diameter. A hemangioma is seen in the left lobe of the liver more posteromediallyand slightly inferiorly, measuring approximately 1.9 cm in diameter.Another hemangioma is seen peripherally in the posterior segment of theright lobe of the liver measuring approximately 1.5 cm in diameter.Another adjacent hemangioma measures 2.7 cm in diameter. There is a 1 cmcyst at the most inferior aspect of the right lobe of the liver. Nosuspicious liver lesion is seen. The patient has had a priorcholecystectomy. There is no significant biliary dilatation.The adrenal glands are normal.The pancreas demonstrates non- enhancing cysts, one in the head of thepancreas measures 9 mm in diameter and one in the body of the pancreasmeasures 3 mm. There is no pancreatic duct dilatation.Three non-enhancing cysts are seen in the mid-right kidney. The largestdemonstrates mild peripheral wall thickening, and measures approximately3.3 cm in diameter. In the posterior aspect of the upper pole of the rightkidney, there is a nodule which is not seen on the prior MRI. It ishypointense on T2 and relatively isointense to normal renal parenchyma onT1 weighted images. It does not contain fat. There does appear to be milddiffuse enhancement following the intravenous administration of Gadolinium. It measures approximately 3.6 cm in diameter. I cannot exclude renal cellcarcinoma; and particularly the signal and enhancement characteristics aresuspicious for papillary renal cell carcinoma.On the left in the upper pole of the left kidney, there is a nodule whichis hypointense on T2 weighted images which is slightly hyperintense on T1fat saturation images. This does not appear to significantly enhancefollowing the intravenous administration of Gadolinium. It measuresapproximately 2.5 cm in diameter. On the prior study, it measured 1.7 cmin diameter. I would favor that this represents a hemorrhagic orproteinaceous cyst which has mildly increased in size. More inferiorly,there are two subcentimeter benign simple cysts. There are two adjacentsubcentimeter hemorrhagic cysts, the larger is in the lower left renalpelvis and measures approximately 8 mm. This is quite hyperintense on theT1 fat saturation images. There is an exophytic oval nodule of the lowerpole of the left kidney. This was seen on the prior study. It ishypointense on T2 and relatively isointense on T1 fat saturation images.There does appear to be mild enhancement. This measures approximately 3.5x 1.9 cm, previously approximately 1.5 cm in diameter. Again, renal cellcarcinoma cannot be excluded, again the signal and enhancementcharacteristics could be compatible with papillary renal cell carcinoma.No adenopathy is seen in the abdomen. There is trace free fluid in theperihepatic region.IMPRESSION:There are findings suggesting portal hypertension and cirrhosis of theliver as discussed above. There is mild splenomegaly with a patentumbilical vein.Several benign cysts and hemangiomas are seen in the liver with nosuspicious liver mass.There are bilateral renal lesions as discussed above. Several renal cystsare present. However, there are two suspicious renal lesions. One is inthe lower pole of the right kidney approximately 3.6 cm in diameter and theother is somewhat exophytic and in the lower pole of the left kidney,measuring 3.5 x 1.9 cm. The right renal lesion was not present on theprior MRI in 2012. The left renal lesion was present but has increased insize. Both of these lesions demonstrate signal and enhancementcharacteristics which may indicate renal cell carcinoma, particularly thepapillary sub-type.Accredited by the [employer] in MR.Bhaskar Beltran, JOSE/Drake you for referring JOYA DEGROOT to our office. Electronically Signed - BHASKAR BELTRAN MD 08/23/20 16:55 Name Value Range Interpretation Code Description Data Stephanie rce(s) Supporting Document(s) ID Date Data Source [id number] 07/19/2020 10:11:00 AM EST [facility] ([facility]) Name Value Range Interpretation Code Description Data Stephanie rce(s) Supporting Document(s) Bjsuj-2-Romarylwjwe [Mass/volume] in Serum or Plasma 2.6 ng/mL [facility] ([facility]) THE AFP ASSAY IS PERFORMED ON THE Med fusionAUR BY CHEMILUMINESCENCE AND SHOULD NOT BE COMPARED INTERCHANGEABLY WITH OTHER METHODS. IT SHOULD NOT BE USED ALONE A SCREENING TEST OR DIAGNOSIS FOR THE PRESENCE OR ABSENCE OF MALIGNANT DISEASE. THESE RESULTS ARE NOT INTERPRETABLE IN FEMALES. PREDICTIONS OF DISEASE RECURRENCE SHOULD NOT BE BASED SOLELY ON VALUES OBTAINED FROM SERIAL PATIENT SERUM VALUES. ID Date Data Source [id number] 07/19/2020 10:11:00 AM EST [facility] ([facility]) Name Value Range Interpretation Code Description Data Stephanie rce(s) Supporting Document(s) Microalb/Creat Ratio 20.3 ug/mg 0.0-30.0 [facility] ( [facility]) Urine Creatinine 105.9 mg/dL 30.0-125.0 [facility] ([facility]) Microalbumin Urine 21.5 mg/L 1.3-20.0 [facility] ([facility]) ID Date Data Source [id number] 07/19/2020 10:11:00 AM EST [facility] ([facility]) Name Value Range Interpretation Code Description Data Stephanie rce(s) Supporting Document(s) Cholesterol [Mass/volume] in Serum or Plasma 209 mg/dL 131-200 [facility] ([facility]) Triglyceride [Mass/volume] in Serum or Plasma 151 mg/dL 30-150 [facility] ([facility]) Cholesterol in LDL [Mass/volume] in Serum or Plasma by calcu lation 132 CALC 50-159 [facility] ([facility]) Cholesterol in HDL [Mass/volume] in Serum or Plasma 47 mg/dL 35-60 [facility] ([facility]) ID Date Data Source [id number] 07/19/2020 10:11:00 AM EST [facility] ([facility]) Name Value Range Interpretation Code Description Data Stephanie rce(s) Supporting Document(s) Glucose [Mass/volume] in Serum or Plasma 113 mg/dL 74-99 [facility] ([facility]) 100-125 mg/dL PRE-DIABETES/FASTING >126 mg/dL DIABETES/FASTING Urea nitrogen [Mass/volume] in Serum or Plasma 22 mg/dL 7-18 [facility] ([facility]) Creatinine 1.3 mg/dL 0.6-1.3 [facility] Chloride [Moles/volume] in Serum or Plasma 106 meq/L 98-107 [facility] ([facility]) Potassium [Moles/volume] in Serum or Plasma 4.4 meq/L 3.5-5.1 [facility] ([facility]) Sodium [Moles/volume] in Serum or Plasma 143 meq/L 136-145 [facility] ([facility]) Calcium [Mass/volume] in Serum or Plasma 9.3 mg/dL 8.5-10.1 [facility] ([facility]) Carbon dioxide, total [Moles/volume] in Serum or Plasma 27 meq/L 21 -32 [facility] ([facility]) Alkaline phosphatase isoenzyme [Units/volume] in Serum or Pl asma 147 mg/dL 46-116 [facility] Total Bilirubin 2.0 mg/dL 0.2-1.0 [facility] Aspartate aminotransferase [Enzymatic activity/volume] in Serum or Plasma 32 U/L 15-37 [facility] ([facility] ) Alanine aminotransferase [Enzymatic activity/volume] in Seru m or Plasma 44 U/L 12-78 [facility] Albumin [Mass/volume] in Serum or Plasma 3.8 g/dL 3.4-5.0 [facility] ([facility]) Proteinase 3 Ab [Units/volume] in Serum 7.1 g/dL 6.4-8.2 [facility] ([facility]) A/G Ratio 1.15 CALC 1.00-1.90 [facility] Glomerular filtration rate/1.73 sq M pre dicted among non-blacks [Volume Rate/Area] in Serum or Plasma by Creatinine-based formula (MDRD) 54 mL/min [facility] Glomerular filtration rate/1.73 sq M pre dicted among blacks [Volume Rate/Area] in Serum or Plasma by Creatinine-based formula (MDRD) Laboratory test result [facility] ([facility]) <content>CHRONIC KIDNEY DISEASE STAGING PER NKF</content>
<content></content>
<content>STAGE I & II GFR >= 60 NORMAL TO MILDLY DECREASED</content>
<content>STAGE III GFR 30-59 MODERATELY DECREASED</content>
<content>STAGE IV GFR 15-29 SEVERELY DECREASED</content>
<content>STAGE V GFR <15 VERY LITTLE GFR LEFT</content>
<content>ESRD GFR <15 ON RIVET MACHINE OPERATOR</content>
<content></content> ID Date Data Source [id number] 07/19/2020 10:11:00 AM EST [facility] ([facility]) Name Value Range Interpretation Code Description Data Stephanie rce(s) Supporting Document(s) Hemoglobin A1c/Hemoglobin.total in Blood 6.2 % [facility] Lab Result Notes: Pre-Diabetes 5.7 - 6.4 % Diabetes = or > 6.5% Glucose mean value [Mass/volume] in Blood Estimated fr om glycated hemoglobin 131 mg/dL 60-110 [facility] ([facility] ) ID Date Data Source [id number] 07/19/2020 10:11:00 AM EST [facility] ([facility]) Name Value Range Interpretation Code Description Data Stephanie rce(s) Supporting Document(s) Erythrocytes [#/volume] in Blood by Automated count 4.44 x10*6/UL 4.2 0-6.30 [facility] Hemoglobin [Mass/volume] in Blood 13.5 g/dL 12.0-18.0 [facility] Leukocytes [#/volume] in Blood by Automated count 5.1 x10*3/UL 4.1-10 .9 [facility] MCV 90.1 fL 80.0-97.0 [facility] ([facility]) MCH 30.3 pg 26.0-32.0 [facility] ([facility]) Hematocrit [Volume Fraction] of Blood by Automated count 40.0 % 3 7.0-51.0 [facility] Platelets [#/volume] in Blood by Automated count 175 x10*3/UL 140-440 [facility] Erythrocyte distribution width [Ratio] by Automated count 14.5 % 11.6-13.7 [facility] MCHC 33.7 g/dL 31.0-38.0 [facility] ([facility]) MPV 8.0 FL 7.8-11.0 [facility] ([facility]) Lymph % 35.6 % 10.0-58.5 [facility] ([facility]) Mid % 7.2 % 1.7-9.3 [facility] ([facility]) Neut % 57.2 % 37.0-92.0 [facility] ([facility]) Lymph # 1.8 x10*3/UL 0.6-4.1 [facility] ([facility]) Mid # 0.4 x10*3/UL 0.1-0.6 [facility] ([facility]) Neut # 2.9 x10*3/UL 2.0-7.8 [facility] Procedure Vital Signs ID Date Data Source UNK Name Value Range Interpretation Code Description Data Source(s) Body mass index (BMI) [Ratio] 47.3 kg/m2 47.3 k g/m2 [facility] Oxygen saturation in Arterial blood by Pulse oximetry 96 % 96 % [facility] RM Air Body weight 330.00 [lb_av] 330.00 [lb_av] MEDEN T ([facility]) Body height 70 [in_i] 70 [in_i] [facility] 5'10" Heart rate 108 /min 108 /min [facility] ([facility]) Diastolic blood pressure 78 mm[Hg] 78 mm[Hg] [facility] Systolic blood pressure 140 mm[Hg] 140 mm[Hg] M [facility] Body temperature 97.3 [degF] 97.3 [degF] [facility] ([facility]) Body weight 149.234 kg 149.234 kg [facility] ([facility]) Body mass index (BMI) [Ratio] 45.9 kg/m2 45.9 k g/m2 [facility] ([facility]) Heart rate 86 /min 86 /min [facility] Diastolic blood pressure 86 mm[Hg] 86 mm[Hg] [facility] ([facility]) Systolic blood pressure 137 mm[Hg] 137 mm[Hg] M EDENT ([facility]) Body weight 329.00 [lb_av] 329.00 [lb_av] MEDEN T ([facility]) Body height 71 [in_i] 71 [in_i] [facility] 5'11" Diastolic blood pressure 88 mm[Hg] 88 mm[Hg] eCW1 ([facility]) Systolic blood pressure 164 mm[Hg] 164 mm[Hg] e CW1 ([facility]) Body temperature 97.2 [degF] 97.2 [degF] eCW1 ( [facility]) Respiratory rate 18 /min 18 /min eCW1 ([facility]) Heart rate 88 /min 88 /min eCW1 ([facility]) Body mass index (BMI) [Ratio] 47.37 kg/m2 47.37 kg/m2 eCW1 ([facility]) Body height [in_i] eCW1 ([facility]) Body weight 339.7 [lb_av] 339.7 [lb_av] eCW1 ([facility]) Diastolic blood pressure 88 mm[Hg] 88 mm[Hg] eCW1 ([facility]) Systolic blood pressure 146 mm[Hg] 146 mm[Hg] e CW1 ([facility]) Body temperature 97.5 [degF] 97.5 [degF] eCW1 ( [facility]) Respiratory rate 18 /min 18 /min eCW1 ([facility]) Heart rate 85 /min 85 /min eCW1 ([facility]) Body mass index (BMI) [Ratio] 47.23 kg/m2 47.23 kg/m2 eCW1 ([facility]) Body height [in_i] eCW1 ([facility]) Body weight 338.7 [lb_av] 338.7 [lb_av] eCW1 ([facility]) Diastolic blood pressure 74 mm[Hg] 74 mm[Hg] eCW1 ([facility]) Systolic blood pressure 144 mm[Hg] 144 mm[Hg] e CW1 ([facility]) Body temperature 97.7 [degF] 97.7 [degF] eCW1 ( [facility]) Respiratory rate 18 /min 18 /min eCW1 ([facility]) Heart rate 95 /min 95 /min eCW1 ([facility]) Body mass index (BMI) [Ratio] 47.36 kg/m2 47.36 kg/m2 eCW1 ([facility]) Body height [in_i] eCW1 ([facility]) Body weight 339.6 [lb_av] 339.6 [lb_av] eCW1 ([facility]) Body mass index (BMI) [Ratio] 48.4 kg/m2 48.4 k g/m2 VERONICA ([facility]) Oxygen saturation in Arterial blood by Pulse oximetry 97 % 97 % [facility]ICA ([facility]) RM Air Body weight 337.38 [lb_av] 337.38 [lb_av] BRITTANEY T ([facility]) Body height 70 [in_i] 70 [in_i] VERONICA ([facility]) 5'10" Heart rate 94 /min 94 /min [facility] ([facility]) Diastolic blood pressure 62 mm[Hg] 62 mm[Hg] [facility] ([facility]) Systolic blood pressure 132 mm[Hg] 132 mm[Hg] M GALDINO ([facility])
[2020-10-31] MEDS ORDERED: ceFAZolin 1GM VIAL (J0690 PER 500MG) As Ordered ONE (06:52)
[2020-10-31] MEDS ORDERED: ceFAZolin 2 GM/D5W 50 ML IV BAG (J0690 PER 500MG) As Ordered ONE (06:52)
[2020-10-31] MEDS ORDERED: ROCURONIUM BROMIDE 50 MG/5 ML VIAL As Ordered ONE ×2 (07:00→08:13)
[2020-10-31] MEDS ORDERED: propofoL 200 MG/20 ML VIAL As Ordered ONE ×2 (07:00→14:38)
[2020-10-31] MEDS ORDERED: fentaNYL 250 MCG/5 ML INJECTION (J3010) As Ordered ONE (07:00)
[2020-10-31] MEDS ORDERED: MIDAZOLAM INJ 2MG/2ML VIAL (J2250 PER 1MG) As Ordered ONE (07:00)
[2020-10-31] MEDS ORDERED: LIDOCAINE 2% 100MG/5ML SDV (FOR ANES.) As Ordered ONE (07:00)
[2020-10-31] MEDS ORDERED: ceFAZolin SOD 2 GM in IV 1 EA IV ONE (07:15)
[2020-10-31] MEDS ORDERED: ceFAZolin SOD 1 GM in D5W MINI-BAG PLUS 50 ML IV ONE (07:15)
[2020-10-31] MEDS ORDERED: LIDOCAINE 1% SDV 30ML VIAL As Ordered ONE (07:17)
[2020-10-31] MEDS ORDERED: BUPIVACAINE HCL 0.25% 30ML VIAL As Ordered ONE (07:17)
[2020-10-31] MEDS ORDERED: GLUCAGON INJ 1MG VIAL SC PRN (07:30)
[2020-10-31] MEDS ORDERED: ONDANSETRON 4MG/2ML VIAL IV PRN ×2 (07:30→15:40)
[2020-10-31] MEDS ORDERED: ACETAMINOPHEN TAB 650MG DOSE (2X325MG) PO PRN (07:30)
[2020-10-31] MEDS ORDERED: GLUCOSE 4GM CHEW TABLET PO PRN (07:30)
[2020-10-31] MEDS ORDERED: MORPHINE 2 MG/ML 1ML VIAL (J2270) IV PRN (07:30)
[2020-10-31] MEDS ORDERED: DEXTROSE 50% 50 ML SYRINGE IV PRN (07:30)
[2020-10-31] MEDS ORDERED: PERCOCET 5MG/325MG TAB PO PRN (07:30)
[2020-10-31] MEDS: HumaLOG INSULIN (NovoLOG) PER UNIT SC SCH ×4 (07:30→21:00)
[2020-10-31] MEDS ORDERED: ePHEDrine SULFATE 25 MG/5 ML(5MG/ML) SYRINGE As Ordered ONE ×2 (07:46→08:13)
[2020-10-31] MEDS ORDERED: PHENYLephrine 500MCG 5ML (100MCG/ML) SYRINGE As Ordered ONE ×4 (08:13→14:06)
[2020-10-31] MEDS ORDERED: dexameTHASONE 4 MG/ML 1ML VIAL (J1100 PER 1MG) As Ordered ONE (08:13)
[2020-10-31] MEDS ORDERED: HYDROmorphone HCL 2 MG/ML 1ML VIAL (J1170) As Ordered ONE (08:44)
[2020-10-31] MEDS ORDERED: ACETAMINOPHEN 1000MG 100ML IV BTL (OFIRMEV) (J0131 PER 10MG) As Ordered ONE (08:47)
[2020-10-31] MEDS ORDERED: ONDANSETRON 4MG/2ML VIAL As Ordered ONE (08:47)
[2020-10-31] MEDS ORDERED: METOCLOPRAMIDE INJ 10MG/2ML VIAL (J2765 PER 1) As Ordered ONE (08:47)
[2020-10-31] MEDS: CHLORTHALIDONE 12.5MG PER 1/2 TABLET PO SCH (09:00)
[2020-10-31] MEDS: DOCUSATE SODIUM 100MG CAPSULE PO SCH ×2 (09:00→21:57)
[2020-10-31] MEDS ORDERED: ASPIRIN 81 MG ENTERIC TAB PO SCH (09:00)
[2020-10-31] MEDS ORDERED: SUGAMMADEX SODIUM 500 MG/5 ML VIAL (BRIDION) As Ordered ONE ×2 (09:17→09:18)
[2020-10-31] MEDS ORDERED: VECURONIUM BROMIDE 10MG VIAL As Ordered ONE ×2 (09:46→12:37)
[2020-10-31] MEDS ORDERED: MANNITOL 25% 12.5 GM/50 ML VIAL (J2150) As Ordered ONE (10:48)
[2020-10-31 15:39] LABS: HEMATOCRIT 39.7 % (42.0-52.0); HEMOGLOBIN 12.6 g/dl (13.5-17.5); MEAN CORPUSCULAR HGB CONC 31.7 g/dl (32.0-36.5); MEAN CORPUSCULAR VOLUME 94.5 fl (80.0-96.0); PLATELET COUNT, AUTOMATED 195 10^3/uL (150-450); WHITE BLOOD COUNT 8.8 10^3/uL (4.0-10.0)
[2020-10-31] MEDS ORDERED: fentaNYL 100 MCG/2 ML INJECTION (J3010) IV PRN (15:40)
[2020-10-31] MEDS ORDERED: oxyCODONE 5MG TAB PO PRN (15:40)
[2020-10-31] MEDS ORDERED: METOCLOPRAMIDE INJ 10MG/2ML VIAL (J2765 PER 1) IV PRN (15:40)
[2020-10-31] MEDS ORDERED: LR 1,000 ML IV SCH (15:40)
--- NOTE | 2020-10-31 15:45 | ROOPDOC ---
[facility] Report Of Operation Report of Operation DATE OF PROCEDURE: 10/31/20 PREPROCEDURE DIAGNOSIS: Right renal cell carcinoma. POSTPROCEDURE DIAGNOSIS: Right renal cell carcinoma. PROCEDURE: Right robotic-assisted laparoscopic partial nephrectomy with intraoperative ultrasound for tumor mapping. SURGEON: Adalgisa Odonnell MD JIG MILL OPERATOR: None ANESTHESIA: General OPERATIVE INDICATIONS: This is a 70 year old male with an approximately 3.4cm enhancing mass on his right kidney. Previous percutaneous biopsy has proven this mass to be renal cell carcinoma. He was brought to the operating room today for treatment. DESCRIPTION OF PROCEDURE: The patient was brought to the operating room where general anesthesia was induced. Prophylactic antibiotics were infused. A Medrano catheter was inserted into the bladder under sterile conditions and the balloon was filled with sterile water. He was then placed in the left lateral decubitus position. All pressure points were appropriately padded and an axillary roll was placed. We then secured the patient to the table with tape. His abdomen was then prepped and draped in the usual sterile fashion. Next, an 8mm incision was made in line with the 11th rib along the lateral border of the rectus. Pneumoperitoneum was achieved with a Veress needle. Next, an 8mm port was placed for the camera. At this point, the right robotic port was placed off the costal margin. A 5mm assistant case manager port was placed just inferior to the xiphoid process for placement of a liver retractor. Two left hand robotic ports were then placed with one between the anterior superior iliac spine and the hip and the other one just caudal to the camera port. Last the 12 mm assistant case manager port was placed inferior and medial to the camera port. The robot was docked. The liver was then dissected off of Gerota's fascia. Then a laparoscopic Allis grasper was utilized to retract the liver off of Gerota's fascia. Next the right colon was dissected off of Gerota's fascia. The duodenum was Kocherized. At this point the inferior vena cava (IVC) vein was identified. It was dissected laterally until the right renal vein was encountered. I then dissected posterior to the right renal vein and the right renal artery was found. It was carefully dissected. Next I had our cd reactor operator head administer 12.5g of mannitol. Gerota's fascia was then opened and I defatted the kidney. This took a significant amount of time as there was a large amount of perinephric fat. The kidney was mobilized. On the superior and posterior aspect of the kidney the tumor was seen. Ultrasound was then utilized to ricky the boundaries of the mass. Next a b ulldog clamp was placed on the renal artery and I began resecting the mass. The mass was resected completely. Once the mass was removed, the renorrhaphy was performed first by ligating all vessels in the base of resection with a #2-0 vicryl suture using figure of eight stitches. The capsule of the kidney was then reapproximated using #0-vicryl suture with Weck clips to cinch down the suture. Once this was done the clamp was removed and hemostasis was excellent. The warm ischemia time was 44 minutes. Next Asa was applied to the resection bed and the tumor was placed in an endocatch bag. A Carlos A Tobin drain was positioned just lateral to the kidney. The robot was undocked after confirming hemostasis within the abdomen. The specimen was then extracted from the 12mm port site after widening it. The fascia of this port site was then closed with a #0 vicryl suture in running fashion. The abdomen was observed again and there was no bleeding from the right kidney or the hilum. We then removed all the ports under direct vision and there was no bleeding from any of the port sites. At this point, all the incisions were thoroughly irrigated. We then closed the skin of each site using a running #4-0 subcuticular Monocryl stitch. The Carlos A Tobin drain was secured to the skin using #3-0 Ethilon suture. Local anesthetic was then applied to each incision and Dermabond was then applied and this marked the conclusion of the procedure. The patient was then taken out of the left lateral decubitus position, awakened from anesthesia and transported to the recovery room in stable condition. ESTIMATED BLOOD LOSS: 400 mL INTRAOPERATIVE COMPLICATIONS: None SPECIMENS: Right renal mass WARM ISCHEMIA TIME: 44 minutes NORMAL RIGHT RENAL PARENCHYMA SPARED: 90% PLAN: The patient will be admitted to the hospital postoperatively and he will be discharged home once his renal function is stable and he is tolerating a regular diet. ADALGISA ODONNELL MD Oct 31, 2020 07:39
[2020-10-31 15:59] LABS: CALCIUM LEVEL 9.3 MG/DL (8.8-10.2); CREATININE FOR GFR 2.19 MG/DL (0.70-1.30); GLOMERULAR FILTRATION RATE 31.6 (>42); POTASSIUM SERUM 5.1 MEQ/L (3.5-5.1)
[2020-10-31] MEDS: HYDROMORPHONE HCL 0.5 MG/ 0.5 ML SYRINGE (J1170 PER 1) IV PRN ×4 (16:10→16:54)
[2020-10-31] MEDS ORDERED: HYDROMORPHONE HCL 0.5 MG/ 0.5 ML SYRINGE (J1170 PER 1) As Ordered ONE (16:49)
[2020-10-31 18:00] VITALS: BP 146/76
[2020-10-31] MEDS: ceFAZolin SOD 1 GM in D5W MINI-BAG PLUS 50 ML IV SCH (18:01)
[2020-10-31] MEDS: amLODIPine 5 MG TAB PO SCH (18:01)
[2020-10-31] MEDS: NS 1,000 ML IV SCH (18:01)
[2020-10-31 18:28] VITALS: BP 149/79
[2020-10-31] MEDS: PERCOCET 5MG/325MG TAB PO PRN (18:57)
[2020-10-31] MEDS ORDERED: IRBESARTAN 150MG TAB PO SCH (21:00)
[2020-10-31 22:00] VITALS: BP 146/79
[2020-11-01] MEDS: ceFAZolin SOD 1 GM in D5W MINI-BAG PLUS 50 ML IV SCH (00:26)
[2020-11-01] MEDS: NS 1,000 ML IV SCH (05:45)
[2020-11-01 06:00] VITALS: BP 133/68
[2020-11-01 06:59] LABS: HEMATOCRIT 35.5 % (42.0-52.0); HEMOGLOBIN 11.4 g/dl (13.5-17.5); MEAN CORPUSCULAR HEMOGLOBIN 30.9 pg (27.0-33.0); MEAN CORPUSCULAR HGB CONC 32.1 g/dl (32.0-36.5); MEAN CORPUSCULAR VOLUME 96.2 fl (80.0-96.0); PLATELET COUNT, AUTOMATED 180 10^3/uL (150-450); RED BLOOD COUNT 3.69 10^6/uL (4.30-6.10); WHITE BLOOD COUNT 10.1 10^3/uL (4.0-10.0)
[2020-11-01 07:24] LABS: CALCIUM LEVEL 8.4 MG/DL (8.8-10.2); CREATININE FOR GFR 3.04 MG/DL (0.70-1.30); GLOMERULAR FILTRATION RATE 21.7 (>42); POTASSIUM SERUM 4.8 MEQ/L (3.5-5.1)
[2020-11-01] MEDS: HumaLOG INSULIN (NovoLOG) PER UNIT SC SCH ×4 (07:59→21:57)
--- NOTE | 2020-11-01 08:05 | IPNPDOC ---
Subjective Review oF Systems Chief Complaint The patient is a 70-year-old male admitted with a reason for visit of Renal Mass. Events since Last Encounter No acute events o/n. Good pain control. No n/v. No f/c/ns. Objective Physical Examination General Exam: Alert, Cooperative, No Acute Distress ABDOMEN EXAM: Soft, Tenderness (minimal), Other (incisions clean/dry/intact; ADELAIDE w/ serosanguinous output) Skin Exam: Nl turgor and temperature Neuro Exam: Normal Speech Vital Signs/I&O Vital Signs Date Time Temp Pulse Resp B/P (MAP) Pulse Ox O2 Delivery O2 Flow Rate FiO2 11/01/20 07:03 18 11/01/20 06:00 96.8 90 133/68 (89) 91 Nasal Cannula 2.0 I&O- Last 24 Hours up to 6 AM 11/01/20 05:59 Intake Total 3240 ml Output Total 1280 ml Balance 1960 ml Laboratory Data Labs 24H Laboratory Tests 2 10/31/20 15:18: Nucleated Red Blood Cells % (auto) 0.0, Anion Gap 9, Glomerular Filtration Rate 31.6L, Calcium Level 9.3 10/31/20 17:53: Bedside Glucose (Misc Panel) 173H 10/31/20 20:44: Bedside Glucose (Misc Panel) 198H 11/01/20 05:51: Bedside Glucose (Misc Panel) 175H 11/01/20 06:30: Nucleated Red Blood Cells % (auto) 0.0, Anion Gap 10, Glomerular Filtration Rate 21.7L, Calcium Level 8.4L CBC/BMP Laboratory Tests 10/31/20 15:18 11/01/20 06:30 FSBS Laboratory Tests Test 10/31/20 17:53 10/31/20 20:44 11/01/20 05:51 Range/Units Bedside Glucose (Misc Panel) 173 198 175 83-110 MG/DL Assessment/Plan Date Seen The patient was seen on 11/01/20. Patient Summary This is a 70 y/o M POD1 s/p R robotic partial nephrectomy. Doing well. Hb stable at 11.4. Cr rising, now 3 from 2.2 postop. UOP relatively low. Plan/VTE VTE Prophylaxis Ordered?: Yes VTE Exclusion Mechanical Proph: N/A:VTE Prophy Ordered Plan/Urinary Catheter Urinary Catheter: D/C Medrano Plan - d/c Medrano - percocet prn pain - ambulate - SCDs when in bed - continue home meds - SSI - strict I/Os - recheck labs this afternoon - advance diet as tolerated ADALGISA ODONNELL MD Nov 01, 2020 08:04
[2020-11-01 08:50] VITALS: BP 140/82
[2020-11-01] MEDS: allopurinoL 100 MG TAB PO SCH (09:21)
[2020-11-01] MEDS: amLODIPine 5 MG TAB PO SCH (09:21)
[2020-11-01] MEDS: DOCUSATE SODIUM 100MG CAPSULE PO SCH ×2 (09:21→20:21)
[2020-11-01] MEDS: CHLORTHALIDONE 12.5MG PER 1/2 TABLET PO SCH (09:22)
[2020-11-01 13:06] LABS: HEMATOCRIT 37.5 % (42.0-52.0); HEMOGLOBIN 11.7 g/dl (13.5-17.5); MEAN CORPUSCULAR HEMOGLOBIN 30.1 pg (27.0-33.0); MEAN CORPUSCULAR HGB CONC 31.2 g/dl (32.0-36.5); MEAN CORPUSCULAR VOLUME 96.4 fl (80.0-96.0); PLATELET COUNT, AUTOMATED 221 10^3/uL (150-450); RED BLOOD COUNT 3.89 10^6/uL (4.30-6.10); WHITE BLOOD COUNT 12.9 10^3/uL (4.0-10.0)
[2020-11-01 13:24] LABS: CALCIUM LEVEL 8.9 MG/DL (8.8-10.2); CREATININE FOR GFR 3.4 MG/DL (0.70-1.30)
[2020-11-01 14:09] VITALS: BP 138/78
[2020-11-01 15:25] LABS: CREATININE BF 3.2 MG/DL (NOT ESTABLISHED); SOURCE, BODY FLUID CREATININE OTHER
[2020-11-01] MEDS: PERCOCET 5MG/325MG TAB PO PRN (20:21)
[2020-11-01 22:00] VITALS: BP 167/88
[2020-11-02 07:45] LABS: HEMATOCRIT 34.7 % (42.0-52.0); HEMOGLOBIN 11.2 g/dl (13.5-17.5); MEAN CORPUSCULAR HEMOGLOBIN 30.7 pg (27.0-33.0); MEAN CORPUSCULAR HGB CONC 32.3 g/dl (32.0-36.5); MEAN CORPUSCULAR VOLUME 95.1 fl (80.0-96.0); PLATELET COUNT, AUTOMATED 146 10^3/uL (150-450); RED BLOOD COUNT 3.65 10^6/uL (4.30-6.10); WHITE BLOOD COUNT 11.8 10^3/uL (4.0-10.0)
[2020-11-02 08:12] LABS: CALCIUM LEVEL 8.5 MG/DL (8.8-10.2); CREATININE FOR GFR 3.38 MG/DL (0.70-1.30); GLOMERULAR FILTRATION RATE 19.2 (>42); POTASSIUM SERUM 4.8 MEQ/L (3.5-5.1)
[2020-11-02] MEDS: DOCUSATE SODIUM 100MG CAPSULE PO SCH ×2 (08:21→20:54)
[2020-11-02] MEDS: CHLORTHALIDONE 12.5MG PER 1/2 TABLET PO SCH (08:21)
[2020-11-02] MEDS: allopurinoL 100 MG TAB PO SCH (08:21)
[2020-11-02] MEDS: amLODIPine 5 MG TAB PO SCH (08:29)
[2020-11-02] MEDS: HumaLOG INSULIN (NovoLOG) PER UNIT SC SCH ×4 (08:30→20:53)
--- NOTE | 2020-11-02 09:49 | IPNPDOC ---
Subjective Review oF Systems Chief Complaint The patient is a 70-year-old male admitted with a reason for visit of Renal Mass. Events since Last Encounter No acute events o/n. Good pain control. Patient feels better w/ less gas pain now that he has started passing flatus. Ambulating well. No n/v. Voiding well. Objective Physical Examination General Exam: Alert, Cooperative, No Acute Distress ABDOMEN EXAM: Soft, Tenderness (minimal), Other (incisions clean/dry/intact; ADELAIDE w/ serosanguinous output) Skin Exam: Nl turgor and temperature Neuro Exam: Normal Speech Vital Signs/I&O Vital Signs Date Time Temp Pulse Resp B/P (MAP) Pulse Ox O2 Delivery O2 Flow Rate FiO2 11/02/20 08:29 100 160/81 11/01/20 22:00 98.5 21 96 Room Air 11/01/20 06:00 2.0 I&O- Last 24 Hours up to 6 AM 11/02/20 06:00 Intake Total 1770 ml Output Total 590 ml Balance 1180 ml Laboratory Data Labs 24H Laboratory Tests 2 11/01/20 11:50: Bedside Glucose (Misc Panel) 159H 11/01/20 12:15: Nucleated Red Blood Cells % (auto) 0.0, Anion Gap 9, Glomerular Filtration Rate 19.0L, Calcium Level 8.9 11/01/20 14:15: Body Fluid Creatinine Source OTHER, Body Fluid Creatinine 3.2 11/01/20 17:01: Bedside Glucose (Misc Panel) 166H 11/01/20 20:10: Bedside Glucose (Misc Panel) 272H 11/02/20 07:01: Nucleated Red Blood Cells % (auto) 0.0, Anion Gap 11, Glomerular Filtration Rate 19.2L, Calcium Level 8.5L CBC/BMP Laboratory Tests 11/01/20 12:15 11/02/20 07:01 FSBS Laboratory Tests Test 11/01/20 11:50 11/01/20 17:01 11/01/20 20:10 Range/Units Bedside Glucose (Misc Panel) 159 166 272 83-110 MG/DL Assessment/Plan Date Seen The patient was seen on 11/02/20. Patient Summary This is a 70 y/o M POD2 s/p a R robotic partial nephrectomy, which was difficult due to obesity. He feels better today. His Hb is stable. He has NIK, w/ his Cr rising to 3.4 (from baseline of about 1.6) yesterday afternoon. It is stable at 3.4 this morning. Plan/VTE VTE Prophylaxis Ordered?: Yes VTE Exclusion Mechanical Proph: N/A:VTE Prophy Ordered Plan - irbesartan d/c'd due to NIK - will continue other home meds for now - nephrology consulted - percocet prn pain - ambulate - SCDs when in bed - strict I/Os - diabetic diet ADALGISA ODONNELL MD Nov 02, 2020 09:48
[2020-11-02 10:00] VITALS: BP 151/80
[2020-11-02] MEDS: CARVedilol 6.25 MG TAB PO SCH ×2 (11:45→20:56)
--- NOTE | 2020-11-02 12:07 | CR ---
CONSULTATION DATE: 11/02/2020 REFERRING PHYSICIAN: ADALGISA ODONNELL MD REASON FOR CONSULTATION: Management of acute renal failure. CHIEF COMPLAINT: Patient was admitted after surgery for right sided renal cell carcinoma. 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 All the workup was done by primary care and urology. Patient has never seen a nephrology service before. He underwent robotic-assisted right sided laparoscopic partial nephrectomy on October 31, 2020. His creatinine on October 31 was 2.1. Baseline creatinine as an outpatient was around 1.8 as of October 2020. His creatinine kept on rising after the surgery, it has bumped up to 3.4 so the nephrology service was called further help in the management of this patient. I saw and evaluated the patient today morning at the bedside. He was actually sitting up on the sofa. He denies any active complaints. He reports his pain is optimized. His Medrano catheter has been removed and he is able to urinate himself. PAST MEDICAL HISTORY: Past medical history of obesity, hyperlipidemia, IVERSON Cirrhosis, chronic kidney disease Stage III, biopsy proven bilateral renal cell carcinoma, pre-diabetes, taking Metformin as an outpatient, chronic gout secondary to chronic kidney disease. PAST SURGICAL HISTORY: Patient had an appendectomy in the past, status post cholecystectomy in the past. He is status post robotic-assisted partial right nephrectomy on October 31, 2020. ALLERGIES: No known drug allergies. FAMILY HISTORY: No significant family history of endstage renal disease requiring hemodialysis. SOCIAL HISTORY: The patient denies any illicit drug abuse or alcohol abuse, lives at home. REVIEW OF SYSTEMS: Constitutional: He denies any fevers or chills. Eyes: He denies any blurry vision or double vision. Cardiovascular: He denies any chest pain or palpitations. Respiratory: He denies any shortness of breath. GI: He denies any nausea or vomiting. Genitourinary: He reports recent surgery. He denies any hematuria. Musculoskeletal: Denies any muscles aches or pains. Skin: He denies any rashes or ulcers. Psych: Denies any depression or anxiety. Hematologic/Oncologic: He reports bilateral renal cell cancer diagnosis. He denies any easy bleeding or bruising. PUBLIC SERVICE OFFICER: He denies any strokes or seizures. All other review of systems are negative. PHYSICAL EXAMINATION: VITAL SIGNS: Temperature is 98 degrees Fahrenheit, blood pressure is 151/80, pulse is 101, respiratory rate of 20, saturating 93% on room air. HEAD AND NECK EXAM: Extraocular muscles are intact. Pupils are equally round and reactive to light. Mucous membranes are moist. Neck is supple. There is no JVD. CARDIOVASCULAR: S1 and S2, tachycardia was noted. No edema in the bilateral lower extremities. RESPIRATORY: Chest is clear to auscultation bilaterally. Bilateral equal air entry. No rales or rhonchi. ABDOMEN: Soft, positive bowel sounds. Surgical scar from recent right sided laparoscopic robotic assisted partial nephrectomy is noted. GENITOURINARY: Bladder is not palpable. He does not have any Medrano catheter. MUSCULOSKELETAL: No clubbing or cyanosis. Pulses are 2+. PUBLIC SERVICE OFFICER: No focal deficit. Power is 5/5 in all extremities. LABORATORY DATA: CBC showed a WBC of 11.8, hemoglobin 11.2, platelets were 146,000. Urinalysis is not available. BMP done today morning showed a sodium of 140, potassium of 4.8, chloride 107, bicarbonate 22, BUN 53, creatinine is 3.3, it was 3.4 yesterday. Calcium is 8.5. IMAGING: There is no imaging done during this hospitalization. However, he had a renal ultrasound done in September 2020 which showed a mass in the right kidney and a mass in the left kidney as well and there were cysts noted in the kidney as well. CURRENT INPATIENT MEDICATIONS: The patient's medications were all reviewed by myself. He was getting normal saline at 50 ml/hr which was stopped yesterday. He is on Tylenol p.r.n., Allopurinol 200 mg p.o. daily, amlodipine 5 mg p.o. daily, I had started the patient on Coreg 6.25 mg p.o. twice a day. He was getting Chlorthalidone 12.5 mg p.o. daily which I had stopped. Colace 100 mg p.o. twice a day, insulin Lispro sliding scale. He was on Irbesartan 100 mg. He was on Irbesartan 100 mg p.o. q.h.s. He got a dose yesterday, it has been stopped already now. He is on Morphine p.r.n., Zofran p.r.n., Percocet p.r.n. ASSESSMENT AND PLAN: 1. Acute renal failure superimposed on chronic kidney disease. Patient's baseline creatinine as per previous hospitalization is 1.8. Creatinine is out of proportion to his partial nephrectomy, most likely associated with use of angiotensin receptor blockers, diuretic, intraoperative use of Mannitol. Patient is non-oliguric at this time. He made around 500 ml of urine yesterday. I have requested the nursing staff to do an accurate urine output monitoring. At this point, I do not feel like the patient needs any IV fluid hydration. Angiotensin receptor александр and diuretic has been stopped. I will continue to monitor the patient for renal improvement. I feel like his creatinine has plateaued and should start improving over the next 24 to 48 hours. I am going to order a urinalysis, urine sodium, chloride, and urine creatinine as well. Further change and recommendations will be done tomorrow depending upon patient's urine results and labs tomorrow morning. 2. Hypertension, patient's blood pressure is uncontrolled and his angiotensin receptor block has been stopped and diuretic has been stopped because of acute renal failure. I have started him on Coreg 6.25 mg p.o. twice a day. Further adjustment will be done tomorrow morning. 3. Chronic gout secondary to chronic kidney disease. Patient's GFR is low. I am going to change the allopurinol dose to 100 mg p.o. daily. 4. Bilateral renal cell carcinoma. Patient is status post right partial nephrectomy. Left sided surgery is planned for three to four months from now. The rest of the management is as per Urology Service. 5. Pre-diabetes. Patient takes Metformin as an outpatient. Avoid use of Metformin at this time. Thank you for involving me in the care of this patient. I shall be happy to follow the patient along with you tomorrow morning. PAOLAD
[2020-11-02 13:31] LABS: APPEARANCE, URINE HAZY (CLEAR); BACTERIA, URINE AUTO 1+ (NEGATIVE); BILIRUBIN, URINE AUTO NEGATIVE (NEGATIVE); BLOOD, URINE BLOOD 3+ (NEGATIVE); COLOR, URINE YELLOW (YELLOW); GLUCOSE, URINE (UA) AUTO NEGATIVE (NEGATIVE); KETONE, URINE AUTO NEGATIVE (NEGATIVE); LEUKOCYTE ESTERASE, URINE AUTO TRACE (NEGATIVE); MUCUS, URINE SMALL (NEGATIVE); NITRITE, URINE AUTO NEGATIVE (NEGATIVE); PROTEIN, URINE AUTO 2+ mg/dL (NEGATIVE); RBC, URINE AUTO 20 /HPF (0-3); SPECIFIC GRAVITY URINE AUTO 1.017 (1.002-1.035); SQUAMOUS EPITHELIAL CELL UR AU 3 /HPF (0-6); UROBILINOGEN, URINE AUTO 0.2 mg/dL (0.0-2.0); WBC, URINE AUTO 13 /HPF (0-3)
[2020-11-02 14:00] VITALS: BP 125/73
[2020-11-02 14:06] LABS: CHLORIDE,RANDOM URINE 16 MEQ/L; SODIUM,RANDOM URINE < 10 MEQ/L
[2020-11-02 18:00] VITALS: BP 127/73
[2020-11-02] MEDS ORDERED: PERCOCET PO (18:39)
[2020-11-02] MEDS ORDERED: DOK1CAP7 PO (18:39)
[2020-11-02 22:00] VITALS: BP 156/79
[2020-11-03 02:00] VITALS: BP 155/76
[2020-11-03 06:00] VITALS: BP 160/86
[2020-11-03 06:22] LABS: HEMATOCRIT 30.8 % (42.0-52.0); HEMOGLOBIN 9.7 g/dl (13.5-17.5); MEAN CORPUSCULAR HEMOGLOBIN 29.9 pg (27.0-33.0); MEAN CORPUSCULAR HGB CONC 31.5 g/dl (32.0-36.5); MEAN CORPUSCULAR VOLUME 95.1 fl (80.0-96.0); PLATELET COUNT, AUTOMATED 125 10^3/uL (150-450); RED BLOOD COUNT 3.24 10^6/uL (4.30-6.10); WHITE BLOOD COUNT 8.5 10^3/uL (4.0-10.0)
[2020-11-03 06:39] LABS: CREATININE FOR GFR 2.65 MG/DL (0.70-1.30); GLOMERULAR FILTRATION RATE 25.4 (>42); POTASSIUM SERUM 4.7 MEQ/L (3.5-5.1)
[2020-11-03] MEDS: HumaLOG INSULIN (NovoLOG) PER UNIT SC SCH (08:12)
[2020-11-03 08:13] VITALS: BP 135/73
[2020-11-03] MEDS: DOCUSATE SODIUM 100MG CAPSULE PO SCH (08:13)
[2020-11-03] MEDS: amLODIPine 5 MG TAB PO SCH (08:13)
[2020-11-03] MEDS: CARVedilol 6.25 MG TAB PO SCH (08:13)
--- NOTE | 2020-11-03 08:58 | IPNPDOC ---
Subjective Review oF Systems Chief Complaint The patient is a 70-year-old male admitted with a reason for visit of Renal Mass. General: Reports: Normal Appetite; Denies: Fatigue, Malaise Constitutional: Denies: Fever, Chills, Sweats, Weakness, Malaise Eyes: Denies: Pain, Vision change ENT: Denies: Head Aches, Sore Throat, Epistaxis Skin: Denies: Rash, Lesions, Breakdown, Nail Changes Pulmonary: Denies: Dyspnea, Cough Gastrointestinal: Denies: Nausea, Vomiting, Abdominal Pain Genitourinary: Denies: Dysuria, Frequency, Incontinence, Hematuria Hematologic: Denies: Bruising, Bleeding Excessively Endocrine: Denies: Polydipsia, Polyphagia, Polyuria Musculoskeletal: Denies: Neck Pain, Back Pain Neurological: Denies: Weakness, Numbness, Incoordination, Change in Speech Objective Physical Examination General Exam: Alert, Cooperative, No Acute Distress Eye Exam: PERRLA, Conjunctiva & lids normal, EOMI; No: Sclera icteric ENT EXAM: Atraumatic, Mucous membr. moist/pink, Pharynx Normal Neck Exam: Supple; No: JVD, thyromegaly Chest Exam: Clear to auscultation, Normal air movement Heart Exam: Positive: Rate Normal, Regular Rhythm, Normal S1, Normal S2; Negative: Murmurs, Rubs ABDOMEN EXAM: Normal bowel sounds, Soft, Tenderness (minimal), Other (incisions clean/dry/intact; ADELAIDE w/ serosanguinous output) Skin Exam: Nl turgor and temperature Neuro Exam: Normal Speech Vital Signs/I&O Vital Signs Date Time Temp Pulse Resp B/P (MAP) Pulse Ox O2 Delivery O2 Flow Rate FiO2 11/03/20 08:13 91 135/73 11/03/20 06:00 99.0 20 93 Room Air 11/01/20 06:00 2.0 I&O- Last 24 Hours up to 6 AM 11/03/20 06:00 Intake Total 1440 ml Output Total 1150 ml Balance 290 ml Laboratory Data Labs 24H Laboratory Tests 2 11/02/20 11:14: Urine Color YELLOW, Urine Appearance HAZY, Urine pH 5.0, Urine Specific Cherry Log 1.017, Urine Protein 2+H, Urine Glucose (Auto)(UA) NEGATIVE, Urine Ketones (Auto) NEGATIVE, Urine Blood 3+H, Urine Nitrite NEGATIVE, Urine Bilirubin NEGATIVE, Urine Urobilinogen 0.2, Urine Leukocyte Esterase (Auto) TRACEH, Urine WBC (Auto) 13H, Urine RBC (Auto) 20H, Urine Hyaline Casts (Auto) 0, Urine Bacteria (Auto) 1+H, Urine Squamous Epithelial Cells 3, Urine Mucus (Auto) SMALL, Urine Sperm (Auto) , Urine Random Creatinine 237.0, Urine Random Sodium < 10, Urine Random Chloride 16 11/02/20 11:19: Bedside Glucose (Misc Panel) 198H 11/02/20 16:26: Bedside Glucose (Misc Panel) 167H 11/02/20 20:16: Bedside Glucose (Misc Panel) 216H 11/03/20 05:54: Nucleated Red Blood Cells % (auto) 0.0, Anion Gap 8, Glomerular Filtration Rate 25.4L, Calcium Level 8.0L CBC/BMP Laboratory Tests 11/03/20 05:54 FSBS Laboratory Tests Test 11/02/20 11:19 11/02/20 16:26 11/02/20 20:16 Range/Units Bedside Glucose (Misc Panel) 198 167 216 83-110 MG/DL Assessment/Plan Date Seen The patient was seen on 11/03/20. Patient Summary BP has improved - now 135/73 Up in chair and comfortable PO well ADELAIDE drain - down to 180 cc yesterday Creatinine improved - now 2.65 GFR improving Plan/VTE VTE Prophylaxis Ordered?: Yes VTE Exclusion Mechanical Proph: N/A:VTE Prophy Ordered Plan Awaiting final input from nephrology. Possible discharge today depending on final disposition from Nephrology KAITLYN DRISCOLL MD Nov 03, 2020 08:58
[2020-11-03] MEDS ORDERED: allopurinoL 100 MG TAB PO SCH (09:00)
[2020-11-03] MEDS ORDERED: CARV6.25 PO (09:25)
--- NOTE | 2020-11-05 10:20 | IPN ---
PROGRESS NOTE DATE: 11/03/2020 SUBJECTIVE: Patient is seen and examined this morning sitting out of bed to the chair in good spirits. Offers no complaints. His renal function shows improvement. Creatinine is down to 2.6 today. He wants to go home. Denies any shortness of breath, diarrhea, nausea, or vomiting. VITAL SIGNS: Temperature 99.0, pulse 94, respiratory rate 20, blood pressure 135/73, saturating 93% on room air. Intake yesterday was 1950. Urine output yesterday was recorded as 900, and he continues to have drainage from his Carlos A-Tobin (ADELAIDE) drain. GENERAL: Patient is seen sitting out of bed to the chair, awake, alert, oriented in no apparent distress. Extraocular muscles are intact. Tongue is moist. Neck is supple. Jugular veins are not elevated while he is sitting upright. Heart sounds are regular, S1, S2. There is no edema in the legs. LUNGS: Clear to auscultation bilaterally. No crackle, rale, or rhonchus. He is comfortable on room air. ABDOMEN: Soft, obese, and nontender. Right-sided dressing with ADELAIDE drain is noted in the right lower quadrant. GENITOURINARY: There is no Medrano catheter. EXTREMITIES: Power 5/5 in all four extremities with peripheral pulses. No clubbing or cyanosis. NEUROLOGIC: He is oriented times three. No focal deficit. Today's laboratory studies show white count 8.5, hemoglobin 9.7, platelets 125. Sodium 140, potassium 4.7, bicarbonate 25, BUN 62, creatinine 2.6. INPATIENT MEDICATIONS: He continues on allopurinol 100 mg by mouth daily, carvedilol 6.25 mg by mouth twice a day, amlodipine 5 mg by mouth daily, Zofran as needed, oxycodone as needed. PROBLEMS: 1. Acute kidney injury (NIK) on chronic kidney disease (CKD), stage IIIB. Patient's baseline creatinine is 1.6-1.8. He has a perioperative acute kidney injury in the setting of partial nephrectomy along with concomitant use of angiotensin-receptor александр and thiazide. His irbesartan was discontinued. His chlorthalidone is discontinued. His creatinine has improved to 2.6 today. His electrolytes are acceptable. He is making urine. He is suitable for discharge from a nephrology point of view with close followup in the office next week. He should be kept off of angiotensin-converting enzyme (NICKY), angiotensin-receptor александр (ARB), nonsteroidal anti-inflammatory drugs (NSAIDs), along with the metformin that he was taking at home, and I have reviewed his medications with him. 2. Hypertension. Blood pressures are acceptably controlled. He is discontinued off of irbesartan and chlorthalidone. He was started on carvedilol in this admission and continues amlodipine as well. 3. Bilateral renal cell carcinoma. He is status post right partial nephrectomy, and left-sided surgery is planned over the next few months, and he is followed by the urology service. We will see what his new baseline renal function will be. 4. Type 2 diabetes. Patient was taking metformin at home. I have discussed with him that he should stay off metformin now. DISCHARGE DISPOSITION: Patient is suitable for discharge with followup in the nephrology office within 1 week. He needs a new prescription for carvedilol, and he should stay off of irbesartan, chlorthalidone, and metformin at this time. Plan of care was discussed with urology.
--- NOTE | 2020-11-05 10:26 | DSES ---
DISCHARGE SUMMARY DATE OF ADMISSION: 10/31/2020 DATE OF DISCHARGE: 11/03/2020 ADMISSION DIAGNOSIS: Renal cell carcinoma. DISCHARGE DIAGNOSES: 1. Renal cell carcinoma. 2. Acute kidney injury. 3. Chronic kidney disease. ADMITTING PHYSICIAN: Zackary Robledo MD DISCHARGE PHYSICIAN: Andrei Pearson MD PROCEDURE PERFORMED: Right robotic-assisted partial nephrectomy 10/31/2020. HISTORY OF PRESENT ILLNESS: This is a 70-year-old male who was recently diagnosed with bilateral renal cell carcinoma. It was recommended that he undergo treatment on the right side first. He had that surgery on October 31, 2020 and was admitted to the hospital postoperatively. HOSPITAL COURSE: The patient was admitted to the hospital after undergoing surgery on his right kidney. His postoperative course was notable mainly for acute kidney injury with his serum creatinine getting as high as 3.4 on postoperative day one, with a baseline of 1.8. His urine output was somewhat sluggish on postoperative day one. He did have high output from Carlos A-Tobin drain but his hemoglobin remained stable. Some of his blood pressure medications were changed on postoperative day two but despite that his serum creatinine remained around 3.4. The nephrology service was therefore consulted for recommendations on managing his acute kidney injury and changing his blood pressure medications. Dr. Giron from nephrology saw him and discontinued his angiotensin receptive александр as well as his diuretic. He started him on Carvedilol. This helped manage his blood pressure better. By postoperative day three the patient's urine output was improving. His serum creatinine had come down to about 2.6. His hemoglobin remained stable. By postoperative day three he was ambulating well with minimal pain. He was tolerating regular diet. Since he was doing better he was deemed ready for discharge home. He was therefore discharged home on postoperative day three. His Carlos A-Tobin drain was removed prior to discharge. The plan will be for him to follow up in urology office in 1-2 weeks to discuss pathology results. He will also have follow up with nephrology service for chronic kidney disease as well as acute kidney injury. VY
== END 2020-11-03 11:00 | disposition home or self-care (01) | DRG 657 ==
LOC: M OR 06:04 → M MS5PR 17:40
PROVIDERS: ADMIT Urology; ATTEND Urology
PROC: 8E0W4CZ Robotic Assisted Procedure of Trunk Region, Percutaneous Endoscopic Approach (ICD-10-PCS; 2020-10-31)
PROC: 0TB04ZZ Excision of Right Kidney, Percutaneous Endoscopic Approach (ICD-10-PCS; principal; 2020-10-31 07:30)
DX: C64.1 Malignant neoplasm of right kidney, except renal pelvis (principal); N17.9 Acute kidney failure, unspecified; C64.2 Malignant neoplasm of left kidney, except renal pelvis; E66.9 Obesity, unspecified; E78.5 Hyperlipidemia, unspecified; N18.32 Chronic kidney disease, stage 3b; M10.30 Gout due to renal impairment, unspecified site; K75.81 Nonalcoholic steatohepatitis (NASH); K74.60 Unspecified cirrhosis of liver; I12.9 Hypertensive chronic kidney disease with stage 1 through stage 4 chronic kidney disease, or unspecified chronic kidney disease

== ENCOUNTER → 2020-12-05 | Outpatient (REF) | payer MEDICARE ==
[~2020-12-05] MED LIST changes: +CARV6.25 PO; +DOK1CAP7 PO; +PERCOCET PO
[2020-12-05 18:16] LABS: PERCENT SATURATION 19.9 % (19.7-50.0)
== END ==
LOC: M LAB REF 16:56
PROVIDERS: ATTEND Internal Medicine Nephrology
DX: N18.9 Chronic kidney disease, unspecified (principal); D63.1 Anemia in chronic kidney disease

== ENCOUNTER → 2021-01-17 | Outpatient (CLI) | payer MEDICARE ==
[2021-01-17 15:08] LABS: CALCIUM LEVEL 8.9 MG/DL (8.8-10.2); CREATININE FOR GFR 1.53 MG/DL (0.70-1.30); GLOMERULAR FILTRATION RATE 47.9 (>42); POTASSIUM SERUM 3.6 MEQ/L (3.5-5.1)
== END ==
LOC: M LAB 13:30
PROVIDERS: ATTEND Urology
DX: C64.1 Malignant neoplasm of right kidney, except renal pelvis (principal)

== ENCOUNTER → 2021-01-21 | Outpatient (CLI) | payer MEDICARE ==
[~2021-01-21] MED LIST changes: +ISOVUE-370 76% 100ML VIAL As Ordered ONE
--- NOTE | 2021-01-21 15:04 | REP ---
INDICATION: RENAL CELL CA. COMPARISON: Multiple the latest 09/04/2020 TECHNIQUE: Standard helical scanning before and after the administration of intravenous contrast. 100 cc Isovue 370 was administered prior to the exam for the contrast-enhanced portion. FINDINGS: There is slightly asymmetric pleural thickening in the left lung base representing a change from the prior exam. There are no pleural or pericardial effusions. The pre contrast enhanced portion examination again shows a round focal area of decreased density in the posterior segment of the right lobe of the liver which is essentially unchanged. Note is again made of a nodular surface to the liver status quo. There is mild splenomegaly which is stable. Postoperative changes are seen involving the right kidney due to partial nephrectomy. Hyperdense cysts are again seen in the left kidney, however, these have increased in size. The contrast-enhanced portion examination again shows enhancement of the aforementioned hepatic lesion. This was previously diagnosed as a benign hemangioma. Other nonenhancing liver lesions are seen status quo. No new enhancing hepatic lesions have developed. There is a small amount of fluid along the upper hepatic edge laterally. This has developed since the last exam. Pancreas and adrenal glands are unchanged. Since the last examination a patient has undergone partial right nephrectomy. Postoperative changes are noted. There are no new right renal lesions. There is no change in the left kidney. The enhancing lesion seen arising from the inferior pole projecting laterally is unchanged. There is no significant change in appearance of the abdominal aorta or para-aortic regions. In the right upper quadrant there is an oval-shaped area of indurated fat with well demarcated margins and measuring approximately 9.9 x 5.4 cm believed to be secondary to postoperative change or old appendagitis epiploica. The bowel loops are essentially unchanged. There is no evidence of free air. There is no evidence of significant change in the imaged osseous structures. IMPRESSION: 1. Cirrhotic features to the liver. 2. Small amount of free fluid as described above. Possibly postoperative in nature. Follow-up is suggested. 3. Postoperative change likely in the right anterior mesentery as described above. Old appendagitis epiploica could also produce the finding. 4. Partial right nephrectomy with postoperative changes. 5. No change in appearance of the left kidney as described above. 6. Mild splenomegaly. 7. Chronic recanalization of the umbilical vein. This likely secondary to portal hypertension but needs to be correlated clinically. 8. Other findings as described above. <Electronically signed by Jono Augirre > 01/21/21 1500
== END ==
LOC: M RAD 13:48
PROVIDERS: ATTEND Urology
DX: C64.9 Malignant neoplasm of unspecified kidney, except renal pelvis (principal)
CPT/HCPCS: 74170; Q9967

== ENCOUNTER → 2021-03-06 | Outpatient (CLI) | payer MEDICARE ==
[~2021-03-06] MED LIST changes: -ISOVUE-370 76% 100ML VIAL As Ordered ONE; +NORV5TAB PO
[2021-03-06 11:54] LABS: HEMATOCRIT 41.3 % (42.0-52.0); HEMOGLOBIN 13.3 g/dl (13.5-17.5); MEAN CORPUSCULAR HEMOGLOBIN 28.9 pg (27.0-33.0); MEAN CORPUSCULAR HGB CONC 32.2 g/dl (32.0-36.5); MEAN CORPUSCULAR VOLUME 89.6 fl (80.0-96.0); PLATELET COUNT, AUTOMATED 165 10^3/uL (150-450); RED BLOOD COUNT 4.61 10^6/uL (4.30-6.10); WHITE BLOOD COUNT 6.8 10^3/uL (4.0-10.0)
[2021-03-06 12:28] LABS: ALBUMIN 3.6 GM/DL (3.2-5.2); BILIRUBIN,TOTAL 1.8 MG/DL (0.2-1.0); CALCIUM LEVEL 9.3 MG/DL (8.8-10.2); CREATININE FOR GFR 1.61 MG/DL (0.70-1.30); GLOMERULAR FILTRATION RATE 45.1 (>42); TOTAL PROTEIN 7.1 GM/DL (6.4-8.2)
== END ==
LOC: M WUC 09:10
PROVIDERS: ATTEND Urology
DX: C64.2 Malignant neoplasm of left kidney, except renal pelvis (principal); Z01.818 Encounter for other preprocedural examination

== ENCOUNTER → 2021-03-09 | Outpatient (CLI) | payer MEDICARE | LOC: M LABSMTC 09:42 | PROVIDERS: ATTEND Anesthesiology | DX: Z20.828 Contact with and (suspected) exposure to other viral communicable diseases (principal); Z11.59 Encounter for screening for other viral diseases ==

== ENCOUNTER 2021-03-14 06:05 | Inpatient (IN) | payer MEDICARE ==
[~2021-03-14] VITALS: Ht 180.3 cm; Wt 146.0 kg
[~2021-03-14 06:05] MED LIST changes: +LR 1,000 ML IV ONE; +ceFAZolin SOD 1 GM in D5W MINI-BAG PLUS 50 ML IV ONE; +ceFAZolin SOD 2 GM in IV 1 EA IV ONE
[2021-03-14] MEDS ORDERED: MIDAZOLAM INJ 2MG/2ML VIAL (J2250 PER 1MG) As Ordered ONE (06:42)
[2021-03-14] MEDS ORDERED: fentaNYL 250 MCG/5 ML INJECTION (J3010) As Ordered ONE (06:43)
[2021-03-14] MEDS ORDERED: HYDROmorphone HCL 2 MG/ML 1ML VIAL (J1170) As Ordered ONE (06:43)
[2021-03-14] MEDS ORDERED: ONDANSETRON 4MG/2ML VIAL As Ordered ONE (06:44)
[2021-03-14] MEDS ORDERED: PHENYLephrine 500MCG 5ML (100MCG/ML) SYRINGE As Ordered ONE (06:44)
[2021-03-14] MEDS ORDERED: ROCURONIUM BROMIDE 50 MG/5 ML VIAL As Ordered ONE (06:44)
[2021-03-14] MEDS ORDERED: SUGAMMADEX SODIUM 500 MG/5 ML VIAL (BRIDION) As Ordered ONE (06:44)
[2021-03-14] MEDS ORDERED: ePHEDrine SULFATE 25 MG/5 ML(5MG/ML) SYRINGE As Ordered ONE (06:44)
[2021-03-14] MEDS ORDERED: dexameTHASONE 4 MG/ML 1ML VIAL (J1100 PER 1MG) As Ordered ONE (06:44)
[2021-03-14] MEDS ORDERED: ACETAMINOPHEN 1000MG 100ML IV BTL (OFIRMEV) (J0131 PER 10MG) As Ordered ONE (06:44)
[2021-03-14] MEDS ORDERED: LIDOCAINE 2% 100MG/5ML SDV (FOR ANES.) As Ordered ONE (06:45)
[2021-03-14] MEDS ORDERED: propofoL 200 MG/20 ML VIAL As Ordered ONE (06:45)
[2021-03-14] MEDS ORDERED: BUPIVACAINE HCL 0.25% 10ML VIAL As Ordered ONE (07:14)
[2021-03-14] MEDS ORDERED: LIDOCAINE 1% MDV 20ML VIAL As Ordered ONE (07:15)
[2021-03-14] MEDS ORDERED: ONDANSETRON 4MG/2ML VIAL IV PRN ×2 (07:50→13:35)
[2021-03-14] MEDS ORDERED: ACETAMINOPHEN TAB 650MG DOSE (2X325MG) PO PRN (07:50)
[2021-03-14] MEDS ORDERED: MORPHINE 2 MG/ML 1ML VIAL (J2270) IV PRN (07:50)
[2021-03-14] MEDS ORDERED: PERCOCET 5MG/325MG TAB PO PRN (07:50)
[2021-03-14] MEDS ORDERED: ATROPINE SULF 0.4 MG/ML 1ML VIAL (J0461) As Ordered ONE (08:20)
[2021-03-14] MEDS ORDERED: MANNITOL 25% 12.5 GM/50 ML VIAL (J2150) As Ordered ONE (09:14)
[2021-03-14] MEDS ORDERED: ceFAZolin 1GM VIAL (J0690 PER 500MG) As Ordered ONE (11:21)
[2021-03-14] MEDS ORDERED: ceFAZolin 2 GM/D5W 50 ML IV BAG (J0690 PER 500MG) As Ordered ONE (11:21)
[2021-03-14] MEDS ORDERED: fentaNYL 100 MCG/2 ML INJECTION (J3010) IV PRN (13:35)
[2021-03-14] MEDS ORDERED: HYDROMORPHONE HCL 0.5 MG/ 0.5 ML SYRINGE (J1170 PER 1) IV PRN (13:35)
[2021-03-14] MEDS ORDERED: oxyCODONE 5MG TAB PO PRN (13:35)
[2021-03-14] MEDS ORDERED: LR 1,000 ML IV SCH (13:35)
[2021-03-14 14:09] LABS: HEMATOCRIT 39.6 % (42.0-52.0); HEMOGLOBIN 12.8 g/dl (13.5-17.5); MEAN CORPUSCULAR HGB CONC 32.3 g/dl (32.0-36.5); MEAN CORPUSCULAR VOLUME 89.6 fl (80.0-96.0); PLATELET COUNT, AUTOMATED 142 10^3/uL (150-450); RED BLOOD COUNT 4.42 10^6/uL (4.30-6.10); WHITE BLOOD COUNT 6.3 10^3/uL (4.0-10.0)
--- NOTE | 2021-03-14 14:21 | ROOPDOC ---
[facility] Report Of Operation Report of Operation DATE OF PROCEDURE: 03/14/21 PREPROCEDURE DIAGNOSIS: Left renal cell carcinoma. POSTPROCEDURE DIAGNOSIS: Left renal cell carcinoma. PROCEDURE: Left robotic-assisted laparoscopic partial nephrectomy with intraoperative ultrasound for tumor mapping. SURGEON: Adalgisa Odonnell MD SUBGRADE ROLLER OPERATOR: None ANESTHESIA: General OPERATIVE INDICATIONS: This is a 70 year old male diagnosed with bilateral renal cell carcinomas. He underwent a right robotic partial nephrectomy a few months ago for the right sided tumor and is here today to remove the approximately 3.5cm left sided renal tumor. DESCRIPTION OF PROCEDURE: The patient was brought to the operating room where general anesthesia was induced. Prophylactic antibiotics were infused. A Medrano catheter was inserted into the bladder under sterile conditions and the balloon was filled with sterile water. He was then placed in the right lateral decubitus position. All pressure points were appropriately padded and an axillary roll was placed. We then secured the patient to the table with tape. His abdomen was then prepped and draped in the usual sterile fashion. Next, an 8mm incision was made in line with the 11th rib along the lateral border of the rectus. Pneumoperitoneum was achieved with a Veress needle. Next, an 8mm port was placed for the camera. At this point, the left robotic port was placed off the costal margin. Two right hand robotic ports were then placed with one between the anterior superior iliac spine and the hip and the other one just caudal to the camera port. Last the 12 mm perinatal breastfeeding assistant port was placed inferior and medial to the camera port. The robot was then docked. The spleen was then dissected off of Gerota's fascia. Next the left colon was dissected off of Gerota's fascia. Given that left sided mass was mostly exophytic the decision was made to remove it without clamping the vessels. Gerota's fascia was then opened and I defatted the kidney. On the inferior and lateral aspect of the kidney the tumor was seen. Ultrasound was then utilized to ricky the boundaries of the mass. The mass was resected completely and it appeared that we had a good margin. Once the mass was removed, the renorrhaphy was performed first by ligating all vessels in the base of resection with a #2-0 vicryl suture using figure of eight stitches. The capsule of the kidney was then reapproximated using #0-vicryl suture with Weck clips to cinch down the suture. Once this was done there was excellent hemostasis. Next Asa was applied to the resection bed and the tumor was placed in an endocatch bag. A Carlos A Tobin drain was positioned just lateral to the kidney. The robot was undocked after confirming hemostasis within the abdomen. The specimen was then extracted from the 12mm port site. A Cheryl fascial closure device was then used to place #0-vicryl free ties through the fascia of the 12mm port site. These ties were then tied down. The abdomen was observed again and there was no bleeding from the left kidney or the hilum. We then removed all the ports under direct vision and there was no bleeding from any of the port sites. At this point, all the incisions were thoroughly irrigated. We then closed the skin of each site using a running #4-0 subcuticular Monocryl stitch. The Carlos A Tobin drain was secured to the skin usint #3-0 Ethilon suture. Local anesthetic was then applied to each incision and Dermabond was then applied and this marked the conclusion of the procedure. The patient was then taken out of the left lateral decubitus position, awakened from anesthesia and transported to the recovery room in stable condition. ESTIMATED BLOOD LOSS: 200 mL INTRAOPERATIVE COMPLICATIONS: None SPECIMENS: Left renal cell carcinoma NORMAL LEFT RENAL PARENCHYMA SPARED: approximately 95% PLAN: The patient will be admitted to the hospital postoperatively and he will be discharged home once his renal function is stable and he is tolerating a regular diet. ADALGISA ODONNELL MD Mar 14, 2021 14:20
[2021-03-14 14:34] LABS: CALCIUM LEVEL 8.5 MG/DL (8.8-10.2); CREATININE FOR GFR 1.91 MG/DL (0.70-1.30); GLOMERULAR FILTRATION RATE 37.1 (>42); POTASSIUM SERUM 4.6 MEQ/L (3.5-5.1)
[2021-03-14 15:00] VITALS: BP 131/79
[2021-03-14] MEDS: ceFAZolin SOD 1 GM in D5W MINI-BAG PLUS 50 ML IV SCH ×2 (15:18→23:40)
[2021-03-14] MEDS: DOCUSATE SODIUM 100MG CAPSULE PO SCH ×2 (15:19→19:58)
[2021-03-14] MEDS: NS 1,000 ML IV SCH (15:19)
[2021-03-14 15:30] VITALS: BP 140/82
[2021-03-14 16:30] VITALS: BP 143/83
[2021-03-14 17:27] VITALS: BP 145/81
[2021-03-14 18:30] VITALS: BP 153/87
[2021-03-14] MEDS: PERCOCET 5MG/325MG TAB PO PRN (19:58)
[2021-03-14] MEDS: CARVedilol 6.25 MG TAB PO SCH (20:01)
[2021-03-14 22:00] VITALS: BP 154/86
[2021-03-15] MEDS: NS 1,000 ML IV SCH (03:50)
[2021-03-15 06:00] VITALS: BP 152/84
[2021-03-15 06:40] LABS: HEMATOCRIT 38.9 % (42.0-52.0); HEMOGLOBIN 12.6 g/dl (13.5-17.5); MEAN CORPUSCULAR HGB CONC 32.4 g/dl (32.0-36.5); MEAN CORPUSCULAR VOLUME 89.6 fl (80.0-96.0); PLATELET COUNT, AUTOMATED 150 10^3/uL (150-450); RED BLOOD COUNT 4.34 10^6/uL (4.30-6.10); WHITE BLOOD COUNT 8.2 10^3/uL (4.0-10.0)
[2021-03-15 07:02] LABS: CALCIUM LEVEL 8.8 MG/DL (8.8-10.2); CREATININE FOR GFR 1.79 MG/DL (0.70-1.30); GLOMERULAR FILTRATION RATE 39.9 (>42); POTASSIUM SERUM 4.2 MEQ/L (3.5-5.1)
[2021-03-15] MEDS ORDERED: CHLORTHALIDONE 12.5MG PER 1/2 TABLET PO SCH (09:00)
[2021-03-15] MEDS ORDERED: amLODIPine 5 MG TAB PO SCH (09:00)
[2021-03-15] MEDS ORDERED: allopurinoL 100 MG TAB PO SCH (09:00)
--- NOTE | 2021-03-15 09:16 | IPNPDOC ---
Subjective Review oF Systems Chief Complaint The patient is a 70-year-old male admitted with a reason for visit of Renal Mass. Events since Last Encounter No acute events o/n. Notes minimal incisional pain. Has mild gas pain. Has no ambulated yet. No n/v. No f/c/ns. Objective Physical Examination General Exam: Alert, Cooperative, No Acute Distress ABDOMEN EXAM: Soft, Tenderness (mild), Other (incisions clean/dry/intact; A[place] w/ serosanguinous output) Skin Exam: Nl turgor and temperature Neuro Exam: Normal Speech Psych Exam: Mental status NL, Mood NL Other physical findings catheter draining clear yellow urine Vital Signs/I&O Vital Signs Date Time Temp Pulse Resp B/P (MAP) Pulse Ox O2 Delivery O2 Flow Rate FiO2 03/15/21 06:00 98.1 76 18 152/84 (106) 92 Room Air 03/14/21 14:33 10.0 I&O- Last 24 Hours up to 6 AM 03/15/21 06:00 Intake Total 7505 ml Output Total 1910 ml Balance 5595 ml Laboratory Data Labs 24H Laboratory Tests 2 03/14/21 13:56: Nucleated Red Blood Cells % (auto) 0.0, Anion Gap 6L, Glomerular Filtration Rate 37.1L, Calcium Level 8.5L 03/15/21 06:00: Nucleated Red Blood Cells % (auto) 0.0, Anion Gap 8, Glomerular Filtration Rate 39.9L, Calcium Level 8.8 CBC/BMP Laboratory Tests 03/14/21 13:56 03/15/21 06:00 Assessment/Plan Date Seen The patient was seen on 03/15/21. Patient Summary This is a 70 y/o M POD1 s/p L robotic partial nephrectomy. He is doing well. His Hb is stable at 12.6. His Cr is close to baseline at 1.79. Good UOP. Normal [place] output. Plan/VTE VTE Prophylaxis Ordered?: Yes VTE Exclusion Mechanical Proph: N/A:VTE Prophy Ordered Plan - d/c Medrano - d/c IVF - percocet prn pain - continue home meds - strict I/Os - SCDs while in bed - incentive spirometry - ambulate - advance diet as tolerated - possible discharge home later today ADALGISA ODONNELL MD Mar 15, 2021 09:16
[2021-03-15 10:00] VITALS: BP 154/85
[2021-03-15] MEDS: DOCUSATE SODIUM 100MG CAPSULE PO SCH (10:06)
[2021-03-15] MEDS: PERCOCET 5MG/325MG TAB PO PRN (10:08)
[2021-03-15 10:09] VITALS: BP 156/87
[2021-03-15] MEDS: CARVedilol 6.25 MG TAB PO SCH (10:09)
[2021-03-15 14:00] VITALS: BP 148/83
[2021-03-15] MEDS ORDERED: DOK1CAP7 PO (17:03)
[2021-03-15] MEDS ORDERED: PERCOCET PO (17:03)
--- NOTE | 2021-03-15 18:09 | DSES ---
DISCHARGE SUMMARY DATE OF ADMISSION: 03/14/2021 DATE OF DISCHARGE: 03/15/2021 ADMISSION DIAGNOSIS: 1. Left renal cell carcinoma. 2. Morbid obesity with body mass index (BMI) of 44.9. DISCHARGE DIAGNOSES: 1. Left renal cell carcinoma. 2. Morbid obesity with BMI of 44.9. ADMITTING PHYSICIAN: Zackary Robledo M.D. DISCHARGE PHYSICIAN: Zackary Robledo M.D. PROCEDURES PERFORMED: Left robotic-assisted laparoscopic partial nephrectomy on March 14, 2021. HISTORY OF PRESENT ILLNESS: This is a 70-year-old male who was diagnosed with bilateral renal cell carcinoma approximately 4-5 months ago. He underwent a right robotic partial nephrectomy about three months ago and was brought in to the hospital for treatment of the left kidney. He was admitted to the hospital after undergoing the above-listed procedure. HOSPITALIZATION COURSE: The patient underwent a left robotic partial nephrectomy on March 14, 2021. He was admitted postoperatively. His postoperative course was unremarkable. All of his labs were within expected limits postoperatively. Specifically, his hemoglobin level was stable at around 12.6 on postoperative day 1. His serum creatinine on postoperative day 1 was 1.79 and he has a baseline creatinine of around 1.6. He had good urine output when his catheter was removed. He started ambulating and did so without difficulty. He had good pain control with oral pain medications. Since he was doing well, he was deemed ready for discharge on postoperative day 1. His Carlos A-Tobin drain was removed. He was discharged home with a plan for him to follow up in the urology clinic in approximately 10 days for a postoperative visit and to discuss pathology results. VY
== END 2021-03-15 18:45 | disposition home or self-care (01) | DRG 657 ==
LOC: M OR 06:05 → M MS5PR 14:40
PROVIDERS: ADMIT Urology; ATTEND Urology
PROC: 8E0W4CZ Robotic Assisted Procedure of Trunk Region, Percutaneous Endoscopic Approach (ICD-10-PCS; 2021-03-14)
PROC: 0TB14ZZ Excision of Left Kidney, Percutaneous Endoscopic Approach (ICD-10-PCS; principal; 2021-03-14 07:30)
DX: C64.2 Malignant neoplasm of left kidney, except renal pelvis (principal); Z68.41 Body mass index [BMI] 40.0-44.9, adult; E66.01 Morbid (severe) obesity due to excess calories

== ENCOUNTER → 2021-03-28 | Outpatient (CLI) | payer MEDICARE ==
[~2021-03-28] MED LIST changes: -LR 1,000 ML IV ONE; -ceFAZolin SOD 1 GM in D5W MINI-BAG PLUS 50 ML IV ONE; -ceFAZolin SOD 2 GM in IV 1 EA IV ONE
[2021-03-28 12:20] LABS: HEMATOCRIT 41.5 % (42.0-52.0); HEMOGLOBIN 13.6 g/dl (13.5-17.5); MEAN CORPUSCULAR HEMOGLOBIN 29.4 pg (27.0-33.0); MEAN CORPUSCULAR HGB CONC 32.8 g/dl (32.0-36.5); MEAN CORPUSCULAR VOLUME 89.8 fl (80.0-96.0); PLATELET COUNT, AUTOMATED 250 10^3/uL (150-450); RED BLOOD COUNT 4.62 10^6/uL (4.30-6.10); WHITE BLOOD COUNT 9.7 10^3/uL (4.0-10.0)
[2021-03-28 12:50] LABS: CALCIUM LEVEL 8.9 MG/DL (8.8-10.2); CREATININE FOR GFR 1.92 MG/DL (0.70-1.30); GLOMERULAR FILTRATION RATE 36.8 (>42); POTASSIUM SERUM 3.5 MEQ/L (3.5-5.1)
== END ==
LOC: M WUC 09:28
PROVIDERS: ATTEND Nurse Practitioner Family
DX: C64.2 Malignant neoplasm of left kidney, except renal pelvis (principal)

== ENCOUNTER → 2021-05-09 | Outpatient (REF) | payer MEDICARE ==
[~2021-05-09] MED LIST changes: +DOK1CAP4 PO; -DOK1CAP7 PO
== END ==
LOC: M LAB REF 16:57
PROVIDERS: ATTEND Internal Medicine Nephrology
DX: E83.42 Hypomagnesemia (principal)

== ENCOUNTER → 2022-04-23 | Outpatient (CLI) | payer MEDICARE ==
[2022-04-23 10:38] LABS: CALCIUM LEVEL 8.9 MG/DL (8.8-10.2); CREATININE FOR GFR 1.85 MG/DL (0.70-1.30); GLOMERULAR FILTRATION RATE 38.3 (>42); POTASSIUM SERUM 3.8 MEQ/L (3.5-5.1)
== END ==
LOC: M WUC 08:07
PROVIDERS: ATTEND Urology
DX: C64.1 Malignant neoplasm of right kidney, except renal pelvis (principal); C64.2 Malignant neoplasm of left kidney, except renal pelvis

== ENCOUNTER → 2022-04-24 | Outpatient (CLI) | payer MEDICARE ==
[~2022-04-24] MED LIST changes: +GASTROGRAFIN SOLUTION 30ML (Q9963) As Ordered ONE
== END ==
LOC: M RAD 08:33
PROVIDERS: ATTEND Urology
DX: C64.1 Malignant neoplasm of right kidney, except renal pelvis (principal); C64.2 Malignant neoplasm of left kidney, except renal pelvis
CPT/HCPCS: 74176; Q9963

== ENCOUNTER → 2022-05-09 | Outpatient (CLI) | payer MEDICARE ==
[~2022-05-09] MED LIST changes: -GASTROGRAFIN SOLUTION 30ML (Q9963) As Ordered ONE; +PROHANCE 279.3MG/ML 15ML VIAL ONE
== END ==
LOC: M PLAIMG 10:51
PROVIDERS: ATTEND Urology
DX: C64.1 Malignant neoplasm of right kidney, except renal pelvis (principal); C64.2 Malignant neoplasm of left kidney, except renal pelvis; Z90.5 Acquired absence of kidney
CPT/HCPCS: 74183; A9576

== ENCOUNTER → 2023-05-06 | Outpatient (CLI) | payer MEDICARE ==
[~2023-05-06] MED LIST changes: -PROHANCE 279.3MG/ML 15ML VIAL ONE
[2023-05-06 10:20] LABS: CALCIUM LEVEL 8.7 MG/DL (8.3-10.6); CREATININE FOR GFR 1.79 MG/DL (0.70-1.30); GLOMERULAR FILTRATION RATE 39.7 (>42); POTASSIUM SERUM 4.6 MMOL/L (3.5-5.1)
== END ==
LOC: M WUC 07:10
PROVIDERS: ATTEND Urology
DX: C64.1 Malignant neoplasm of right kidney, except renal pelvis (principal); C64.2 Malignant neoplasm of left kidney, except renal pelvis

== ENCOUNTER → 2023-05-14 | Outpatient (CLI) | payer MEDICARE ==
[~2023-05-14] MED LIST changes: +PROHANCE 279.3MG/ML 15ML VIAL ONE
== END ==
LOC: M PLAIMG 13:21
PROVIDERS: ATTEND Urology
DX: C64.1 Malignant neoplasm of right kidney, except renal pelvis (principal); C64.2 Malignant neoplasm of left kidney, except renal pelvis; K74.60 Unspecified cirrhosis of liver
CPT/HCPCS: 74183; A9576

== ENCOUNTER → 2023-07-14 | Outpatient (REF) | payer MEDICARE ==
[~2023-07-14] MED LIST changes: -PROHANCE 279.3MG/ML 15ML VIAL ONE
== END ==
LOC: M LAB REF 15:01
PROVIDERS: ATTEND Surgery
DX: D48.19 Other specified neoplasm of uncertain behavior of connective and other soft tissue (principal)

== ENCOUNTER → 2024-05-12 | Outpatient (CLI) | payer MEDICARE ==
[~2024-05-12] MED LIST changes: +IRBE300T25 PO; -IRBE300T7 PO; +PROHANCE 279.3MG/ML 15ML VIAL ONE
== END ==
LOC: M PLAIMG 10:49
PROVIDERS: ATTEND Urology
DX: C64.2 Malignant neoplasm of left kidney, except renal pelvis (principal); C64.1 Malignant neoplasm of right kidney, except renal pelvis
CPT/HCPCS: 74183; A9576

== ENCOUNTER → 2024-05-16 | Outpatient (CLI) | payer MEDICARE ==
[~2024-05-16] MED LIST changes: -PROHANCE 279.3MG/ML 15ML VIAL ONE
[2024-05-16 13:54] LABS: CALCIUM LEVEL 9.7 MG/DL (8.3-10.6); CREATININE FOR GFR 1.77 MG/DL (0.70-1.30); GLOMERULAR FILTRATION RATE 40.1 (>42); POTASSIUM SERUM 4.3 MMOL/L (3.5-5.1)
[2024-05-18 14:07] LABS: PSA FREE 2.6 ng/mL; PSA TOTAL 7.6 ng/mL (< OR = 4.0)
== END ==
LOC: M WUC 10:17
PROVIDERS: ATTEND Urology
DX: R97.20 Elevated prostate specific antigen [PSA] (principal); C64.2 Malignant neoplasm of left kidney, except renal pelvis; C64.1 Malignant neoplasm of right kidney, except renal pelvis

== ENCOUNTER → 2024-06-16 | Outpatient (CLI) | payer MEDICARE | LOC: M WUC 10:21 | PROVIDERS: ATTEND Urology | DX: R97.20 Elevated prostate specific antigen [PSA] (principal) ==

== ENCOUNTER → 2024-08-01 | Outpatient (REF) | payer MEDICARE | LOC: M LAB REF 11:30 | PROVIDERS: ATTEND Internal Medicine | DX: K76.0 Fatty (change of) liver, not elsewhere classified (principal) ==

== ENCOUNTER → 2025-05-25 | Outpatient (CLI) | payer MEDICARE ==
[2025-05-25 14:43] LABS: CALCIUM LEVEL 8.6 MG/DL (8.3-10.6); CARBON DIOXIDE LEVEL 28.0 MMOL/L (20-31); CHLORIDE LEVEL 105.0 MMOL/L (98-107); CREATININE FOR GFR 1.73 MG/DL (0.70-1.30); GLOMERULAR FILTRATION RATE 40.4 (>42); POTASSIUM SERUM 4.1 MMOL/L (3.5-5.1); SODIUM LEVEL 141.0 MMOL/L (136-145)
== END ==
LOC: M WUC 07:52
PROVIDERS: ATTEND Urology
DX: R97.20 Elevated prostate specific antigen [PSA] (principal); C64.1 Malignant neoplasm of right kidney, except renal pelvis; C64.2 Malignant neoplasm of left kidney, except renal pelvis